=== PATIENT | female | born 1940 | race Caucasian/White ===

== ENCOUNTER → 2016-08-20 | Outpatient (CLI) | payer MEDICARE ==
[2016-08-20 10:53] LABS: ALT 28 U/L (9-52); AST 19 U/L (14-36); Alkaline Phosphatase 99 U/L (38-126); Anion Gap 11 mmol/L; Blood Urea Nitrogen 18 mg/dL (7-17); Calcium 9.8 mg/dL (8.4-10.2); Carbon Dioxide 28 mmol/L (22-30); Chloride 101 mmol/L (98-107); Cholesterol 220 mg/dL (<200); Glucose 161 mg/dL (74-99); HDL Cholesterol 49 mg/dL (40-60); Non-African American GFR(MDRD) >60 (>60 ml/min/1.73 sqM); Potassium 4.3 mmol/L (3.5-5.1); Sodium 140 mmol/L (137-145); Total Bilirubin 0.5 mg/dL (0.2-1.3); Total Protein 7.9 g/dL (6.3-8.2); Triglycerides 135 mg/dL (<150)
== END | disposition home or self-care (01) ==
LOC: LABWHC1 09:54
PROVIDERS: ATTEND Internal Medicine Endocrinology, Diabetes & Metabolism
DX: E11.65 Type 2 diabetes mellitus with hyperglycemia (principal)
CPT/HCPCS: 36415; 80053; 80061; 82043

== ENCOUNTER → 2017-01-02 | Outpatient (CLI) | payer MEDICARE ==
--- NOTE | 2017-01-03 13:42 | MM ---
Reason for exam: screening (asymptomatic). Last mammogram was performed 1 year and 1 month ago. History: Patient is postmenopausal and has history of other cancer at age 71. Cyst aspiration of the left breast. 2 benign excisional biopsies of the left breast. Benign excisional biopsy of the right breast. Took estrogen for 5 years beginning at age 45. Physical Findings: A clinical breast exam by your physician is recommended on an annual basis and results should be correlated with mammographic findings. MG 3D Screening Mammo W/Cad Bilateral CC and MLO view(s) were taken. Prior study comparison: December 12, 2015, bilateral MG 3d screening mammo w/cad. December 07, 2014, bilateral MG screening mammo w CAD. The breast tissue is heterogeneously dense. This may lower the sensitivity of mammography. No significant changes when compared with prior studies. ASSESSMENT: Negative, BI-RAD 1 RECOMMENDATION: Routine screening mammogram of both breasts in 1 year.
== END | disposition home or self-care (01) ==
LOC: RADMAMWWP 08:23
PROVIDERS: ATTEND Internal Medicine
DX: Z12.31 Encounter for screening mammogram for malignant neoplasm of breast (principal)
CPT/HCPCS: 77063; G0202

== ENCOUNTER → 2017-01-17 | Outpatient (CLI) | payer MEDICARE ==
[2017-01-17 10:00] LABS: Cholesterol 141 mg/dL (<200); HDL Cholesterol 52 mg/dL (40-60)
== END | disposition home or self-care (01) ==
LOC: LABWHC1 09:04
PROVIDERS: ATTEND Internal Medicine Endocrinology, Diabetes & Metabolism
DX: E11.65 Type 2 diabetes mellitus with hyperglycemia (principal)
CPT/HCPCS: 36415; 80061

== ENCOUNTER → 2017-04-29 | Outpatient (CLI) | payer MEDICARE ==
[2017-04-29 12:41] LABS: ALT 26 U/L (9-52); AST 19 U/L (14-36); Albumin 3.9 g/dL (3.5-5.0); Alkaline Phosphatase 85 U/L (38-126); Anion Gap 10 mmol/L; Blood Urea Nitrogen 22 mg/dL (7-17); Calcium 9.9 mg/dL (8.4-10.2); Carbon Dioxide 30 mmol/L (22-30); Chloride 102 mmol/L (98-107); Glucose 136 mg/dL (74-99); Potassium 4.6 mmol/L (3.5-5.1); Sodium 142 mmol/L (137-145); Total Bilirubin 0.3 mg/dL (0.2-1.3)
[2017-04-29 16:10] LABS: Hemoglobin A1C 8.5 % (4.0-6.0)
== END | disposition home or self-care (01) ==
LOC: LABWHC1 11:12
PROVIDERS: ATTEND Internal Medicine Endocrinology, Diabetes & Metabolism
DX: E11.65 Type 2 diabetes mellitus with hyperglycemia (principal)
CPT/HCPCS: 36415; 80053; 82043; 82570; 83036

== ENCOUNTER → 2017-10-02 | Outpatient (CLI) | payer MEDICARE | END | disposition home or self-care (01) | LOC: LABPAT 14:15 | PROVIDERS: ATTEND Orthopaedic Surgery | DX: Z01.812 Encounter for preprocedural laboratory examination (principal) | CPT/HCPCS: 87070 ==

== ENCOUNTER → 2017-10-02 | Outpatient (CLI) | payer MEDICARE ==
[2017-10-02 21:48] LABS: Hemoglobin A1C 8.1 % (4.0-6.0)
== END | disposition home or self-care (01) ==
LOC: LABWHC1 14:12
PROVIDERS: ATTEND Internal Medicine Endocrinology, Diabetes & Metabolism
DX: E11.65 Type 2 diabetes mellitus with hyperglycemia (principal)
CPT/HCPCS: 36415; 83036

== ENCOUNTER → 2017-10-03 | Outpatient (CLI) | payer MEDICARE ==
[2017-10-03 08:04] LABS: Basophils % (A) 0 %; Eosinophils # (A) 0.2 k/uL (0-0.7); Eosinophils % (A) 2 %; HCT 36.2 % (34.0-46.0); Lymphocytes # (A) 2.1 k/uL (1.0-4.8); Lymphocytes % (A) 24 %; MCH 30.8 pg (25.0-35.0); MCV 93.4 fL (80.0-100.0); Mean Platelet Volume 7.1; Monocytes # (A) 0.6 k/uL (0-1.0); Monocytes % (A) 7 %; Neutrophils # (A) 5.8 k/uL (1.3-7.7); Neutrophils % (A) 65 %; Platelet Count 422 k/uL (150-450); RBC 3.88 m/uL (3.80-5.40); WBC 8.8 k/uL (3.8-10.6)
[2017-10-03 08:38] LABS: ALT 28 U/L (9-52); AST 20 U/L (14-36); Alkaline Phosphatase 76 U/L (38-126); Anion Gap 11 mmol/L; Blood Urea Nitrogen 20 mg/dL (7-17); Carbon Dioxide 29 mmol/L (22-30); Chloride 100 mmol/L (98-107); Cholesterol 135 mg/dL (<200); Glucose 159 mg/dL (74-99); HDL Cholesterol 48 mg/dL (40-60); LDL Cholesterol,Calculated 64 mg/dL (0-99); Potassium 4.2 mmol/L (3.5-5.1); Sodium 140 mmol/L (137-145); Total Bilirubin 0.3 mg/dL (0.2-1.3); Total Protein 6.9 g/dL (6.3-8.2); Triglycerides 116 mg/dL (<150)
[2017-10-03 08:40] LABS: Appearance,Urine Clear (Clear); Bilirubin,Urine Negative (Negative); Blood,Urine Negative (Negative); Color,Urine Yellow; Glucose,Urine (UA) Negative (Negative); Hyaline Casts,Urine 1 /lpf (0-2); Ketones,Urine Negative (Negative); Leukocyte Esterase,Urine Trace (Negative); Mucus,Urine Rare /hpf; Nitrite,Urine Negative (Negative); Protein,Urine Negative (Negative); RBC,Urine <1 /hpf (0-5); Specific Gravity,Urine 1.018 (1.001-1.035); Squamous Epithelial Cell,Urine <1 /hpf (0-4); Urobilinogen,Urine <2.0 mg/dL (<2.0); WBC,Urine 2 /hpf (0-5)
== END | disposition home or self-care (01) ==
LOC: LABWHC1 07:12
PROVIDERS: ATTEND Internal Medicine
DX: E78.5 Hyperlipidemia, unspecified (principal); I10 Essential (primary) hypertension
CPT/HCPCS: 36415; 80053; 80061; 81001; 84439; 84443; 85025

== ENCOUNTER → 2017-12-04 | Outpatient (CLI) | payer MEDICARE ==
[2017-12-04 11:16] LABS: ALT 25 U/L (9-52); AST 19 U/L (14-36); Albumin 3.9 g/dL (3.5-5.0); Alkaline Phosphatase 78 U/L (38-126); Anion Gap 7 mmol/L; Blood Urea Nitrogen 16 mg/dL (7-17); Calcium 9.7 mg/dL (8.4-10.2); Carbon Dioxide 31 mmol/L (22-30); Chloride 103 mmol/L (98-107); Cholesterol 131 mg/dL (<200); Glucose 151 mg/dL (74-99); HDL Cholesterol 45 mg/dL (40-60); LDL Cholesterol,Calculated 58 mg/dL (0-99); Potassium 4.3 mmol/L (3.5-5.1); Sodium 141 mmol/L (137-145); Total Bilirubin 0.4 mg/dL (0.2-1.3); Total Protein 7.1 g/dL (6.3-8.2); Triglycerides 140 mg/dL (<150)
[2017-12-04 18:21] LABS: Hemoglobin A1C 7.6 % (4.0-6.0)
== END | disposition home or self-care (01) ==
LOC: LABWHC1 09:44
PROVIDERS: ATTEND Internal Medicine Endocrinology, Diabetes & Metabolism
DX: E11.65 Type 2 diabetes mellitus with hyperglycemia (principal)
CPT/HCPCS: 36415; 80053; 80061; 82043; 82570; 83036

== ENCOUNTER → 2017-12-25 | Outpatient (CLI) | payer MEDICARE ==
[2017-12-25 12:02] LABS: Basophils % (A) 1 %; Eosinophils # (A) 0.1 k/uL (0-0.7); Eosinophils % (A) 2 %; HCT 36.1 % (34.0-46.0); HGB 11.4 gm/dL (11.4-16.0); Lymphocytes % (A) 27 %; MCHC 31.4 g/dL (31.0-37.0); MCV 95.5 fL (80.0-100.0); Mean Platelet Volume 6.8; Monocytes # (A) 0.5 k/uL (0-1.0); Monocytes % (A) 6 %; Neutrophils # (A) 4.9 k/uL (1.3-7.7); Neutrophils % (A) 64 %; Platelet Count 445 k/uL (150-450); RBC 3.78 m/uL (3.80-5.40); RDW 13.2 % (11.5-15.5); WBC 7.7 k/uL (3.8-10.6)
== END | disposition home or self-care (01) ==
LOC: LABPAT 11:35
PROVIDERS: ATTEND Orthopaedic Surgery
DX: Z01.812 Encounter for preprocedural laboratory examination (principal); M17.11 Unilateral primary osteoarthritis, right knee
CPT/HCPCS: 85025; 85610; 85730

== ENCOUNTER 2017-12-31 08:36 | Inpatient (IN) | payer MEDICARE ==
[2017-12-25 08:18] VITALS: BMI 35.9
--- NOTE | 2017-12-30 17:21 | HP ---
HISTORY AND PHYSICAL CHIEF COMPLAINT: Right knee pain. HISTORY OF PRESENT ILLNESS: The patient is a 77-year-old retired female who presents with progressive right knee pain secondary to osteoarthrosis despite conservative measures. She notes pain limits her normal function and activities. PAST MEDICAL HISTORY: Significant for type 2 diabetes, coronary artery disease status post bypass grafting, hypertension, and hyperlipidemia. PAST SURGICAL HISTORY: Significant for coronary artery bypass grafting in addition to previous left total knee arthroplasty. She does have a history of a previous DVT. CURRENT MEDICATIONS: Aspirin, insulin, losartan, hydrochlorothiazide, metoprolol, simvastatin. ALLERGIES: She denies drug allergies. FAMILY HISTORY: Noncontributory. SOCIAL HISTORY: Significant for previous tobacco use. REVIEW OF SYSTEMS: Sixteen point review of systems otherwise reviewed and is noncontributory. PHYSICAL EXAMINATION: On examination, the patient is a well-developed, well-nourished female of endomorphic habitus. HEENT exam is nonfocal. NECK: Supple. She has painless passive motion of the right hip. Straight leg raise is negative. Active motion right knee -10 to 110 degrees of flexion. She is tender about the medial joint line. She has genu varum alignment. She has a mild effusion. Her distal neurovascular appears intact in the right lower extremity. Previous weightbearing notch, lateral and Merchant views of the right knee obtained in the office show severe medial compartment osteoarthrosis. IMPRESSION: 1. Right knee severe medial compartment osteoarthrosis. 2. History of heart disease, status post bypass grafting. 3. [id number]-wdwlhulmb diabetes. RECOMMENDATIONS: I talked to the patient at length regarding her condition and treatment options. At this point, she remains quite symptomatic despite extensive conservative measures. After thorough discussion of her options, she opts to proceed with surgery. We will plan to proceed with right total knee arthroplasty. We will institute DVT prophylaxis postoperatively. The patient underwent preoperative cardiac evaluation by Dr. Falcon. MMJESSE / MARINN: [id number] /
[~2017-12-31 08:36] MED LIST: ACETAMINOPHEN TAB 500 MG TAB PO ONE; MELOXICAM 7.5 MG TAB PO ONE; TRANEXAMIC ACID 1,000 MG in SODIUM CHLORIDE 0.9% 50 ML IVPB ONE; VANCOMYCIN 1,250 MG in SODIUM CHLORIDE 0.9% 250 ML IVPB ONE
[2017-12-31 09:46] LABS: Glucose,Whole Blood 149 mg/dL (75-99)
[2017-12-31] MEDS ORDERED: ONDANSETRON 4 MG/2 ML VIAL IVP ONE (09:54)
[2017-12-31] MEDS ORDERED: DEXAMETHASONE SOD PHOSPHATE 10 MG/ML 1 ML VIAL IV ONE (09:54)
[2017-12-31] MEDS ORDERED: LIDOCAINE 1% 20 ML VIAL (10MG/ML) FOR IV START INTRADERMA ONE (09:54)
[2017-12-31] MEDS ORDERED: LACTATED RINGERS 1,000 ML IV ONE ×2 (09:54→14:03)
[2017-12-31] MEDS ORDERED: MIDAZOLAM 2 MG/2 ML VIAL ONE ×2 (10:26→12:21)
[2017-12-31] MEDS ORDERED: ROPIVACAINE 246.25 MG, EPINEPHrine 0.5 MG, KETOROLAC 30 MG, cloNIDine HCL/PF 80 MCG, WA... MISCELLANE ONE ×5 (11:48)
[2017-12-31] MEDS ORDERED: ROPIVACAINE 1,100 MG, SODIUM CHLORIDE 0.9% 330 ML MISCELLANE PRN ×2 (12:02)
--- NOTE | 2017-12-31 12:04 | P.ONQ ---
Anesthesiology Proc Note - PNB - Peripheral Nerve Block Performed Right Adductor Canal Infusion Time Out Performed: Yes Procedure Start Time: 11:30 Procedure Stop Time: :40 Indication: Acute Post-Operative Pain, Requested by physician Sedation Type: Sedate with meaningful contact maintained Preparation: Sterile Dressing Position: Supine Catheter: Indwelling Needle Types: On-Q Needle Size: 100mm (4") Needle Gauge: 21 Technique: Ultrasound Injectate: 0.5% Ropivacaine (see comment for volume) Blood Aspirated: No Pain Paresthesia on Injection Noted: No Resistance on Injection: Normal Events: Uneventful and Well Tolerated
[2017-12-31] MEDS ORDERED: SODIUM CHLORIDE 0.9% 100 ML BAG ONE (12:21)
[2017-12-31] MEDS ORDERED: diphenhydrAMINE 50 MG/ML 1 ML VIAL ONE (12:21)
[2017-12-31] MEDS ORDERED: fentaNYL (PF) 50 MCG/ML 2 ML AMP ONE (12:21)
[2017-12-31] MEDS ORDERED: TRANEXAMIC ACID 1,000 MG/10 ML VIAL ONE (12:21)
[2017-12-31] MEDS ORDERED: ceFAZolin 3,000 MG in SODIUM CHLORIDE 0.9% IRRIGATIO 3,000 ML IRRIGATION ONE (12:27)
[2017-12-31] MEDS ORDERED: MAGNESIUM HYDROXIDE 2,400 MG/10 ML CUP PO PRN (14:03)
[2017-12-31] MEDS ORDERED: ONDANSETRON 4 MG/2 ML VIAL IVP PRN (14:03)
[2017-12-31] MEDS ORDERED: HYDROmorphone 1 MG/ML 1 ML SYRINGE IVP PRN (14:03)
[2017-12-31] MEDS ORDERED: NALOXONE 0.4 MG/ML 1 ML VIAL IV PRN (14:03)
[2017-12-31] MEDS ORDERED: traMADol 50 MG TAB PO PRN (14:03)
[2017-12-31] MEDS ORDERED: HYDROcodone/APAP 5-325MG 1 EACH TAB PO PRN (14:03)
--- NOTE | 2017-12-31 14:31 | P.OP ---
Date of Procedure: 12/31/17 Preoperative Diagnosis: Right knee severe tricompartmental osteoarthrosis Postoperative Diagnosis: Same Procedure(s) Performed: Right total knee arthroplastycementedcruciate substituting Implants: Depuy Attune size 5 narrow cemented femoral component, size 4 cemented tibial component, 10 mm articular surface, 29 mm cemented patellar component. This is a posterior stabilized implant. Anesthesia: regional, local, spinal Surgeon: Bryant Bone Superintendent Plant Protection #1: Karthik Cheng Estimated Blood Loss (ml): 50 Pathology: other (Bone fragments) Condition: stable Disposition: PACU Indications for Procedure: The patient is a 77-year-old female who presents with progressive right knee pain secondary osteoarthrosis despite conservative measures. A discussion of the risks and benefits of operative intervention versus continued conservative measures was made with the patient. She opted to proceed with surgery. Operative risks to include infection, neurovascular injury, development of blood clots, possible component loosening, possible component failure and need for subsequent procedures was discussed. Informed consent was obtained. Operative Findings: As below Description of Procedure: The patient was brought to the operating room, and after induction of spinal anesthesia the right lower extremity was prepped and draped in normal fashion. The tourniquet was inflated to 270 mmHg. A longitudinal incision extending 3 finger breaths above the superior pole of patella extending to the medial aspect of the tibial tubercle was then made. The skin and subcutaneous tissues were divided sharply. Electrocautery was used for hemostasis. A medial parapatellar arthrotomy is performed. The medial soft tissues to include the superficial and deep portions of the medial collateral ligament and medial hamstring tendons were elevated subperiosteally as well as the posterior medial capsule. The proximal medial tibia osteophytes were carefully removed with a curved osteotome. The patella was everted. A portion of the retropatellar fat pad was excised sharply. A starting hole was made in the distal femur 1 cm anterior to the posterior cruciate ligament origin. An intramedullary femoral guide was gently inserted planning on 5 valgus distal cut with 9 mm distal resection. The cutting block was pinned in place. The distal cut was then made. The posterior referencing sizing guide was utilized. I felt size 5 was most appropriate. 3 of external rotation was built into the system and verified off the trans-epicondylar axis and the posterior condyles. The cutting block was pinned in place. The anterior, posterior, and chamfer cuts were made. The bone fragments were then removed. The appropriate cutting guide was utilized for the intercondylar cut. A reciprocating saw was used to make this. The bone was removed in one fragment. The trial size 5 femoral component was placed and was fully seated. There was good anterior to posterior and medial to lateral fit. The distal peg holes were then drilled. The trial component was then removed. Attention was then paid towards preparing the proximal tibia. An extra measure the tibial guide was utilized in line with the tibial shaft and second metatarsal distally. A 0 posterior slope cutting block was utilized. I planned on 2 mm resection from the medial compartment. The cutting block was pinned in place. The proximal tibial cut was then made. The bone was removed in one fragment. The tibia sized most appropriate size 4. The remnants of the medial and lateral menisci were excised the capsule junction with electrocautery. The trial tibial and femoral components were placed along with a 10 mm articular surface and I felt I had tightness in flexion and extension therefore an additional 2 mm approximately tibia was removed utilizing the cutting block. The trial components again were placed. Is able to obtain full flexion and extension with good stability with varus and valgus stress. After several flexion and extension cycles, the tibial rotation was marked with electrocautery in line with the medial one third of the tibial tubercle. Attention was then paid towards repairing the patella. A patella reamer was utilized down to 14 mm of bone stock. A good flush cut was made. The patella sized most appropriately 29 mm per the peg holes were drilled. The trial components placed. The knee was taken through a range of motion. I had good patellofemoral tracking with no hands technique. The trial components were then removed. The tibia was prepared in the appropriate rotation with appropriate drill and keel punch. The posterior osteophytes off the distal femur were carefully removed with a curved osteotome. The flexion and extension gaps were checked and felt to be symmetric. Pulsatile lavage was utilized. The bony surfaces were dried. Posterior soft tissues were injected with ropivacaine. The tibial component was then cemented in place and was fully seated. Excess cement was removed. The femoral component was cemented in placed and was fully seated. Excess cement was removed. The trial 10 mm articular surface was placed and the knee was put in full extension. The patella component was cemented in place. After the cement had sufficiently hardened, the knee was again taken through a range of motion. Again I was able to obtain full flexion and extension with good stability with varus and valgus stress. The trial articular surface was removed and the final one inserted. This was fully seated. Care taken to avoid any soft tissue interposition. Pulsatile lavage was again utilized. The medial parapatellar arthrotomy was closed with #2 Ethibond suture. The tourniquet was deflated with approximate 70 minutes total tourniquet time. Final hemostasis was obtained with electrocautery. The second is of IV TXA was given. The subcutaneous tissues reapproximated interrupted 2-0 Vicryl sutures. The skin was reapproximated with 3-0 subcuticular strata fix suture. Skin tape and adhesive was applied. A sterile dressing was applied. The patient was then awoken from sedation and transferred to recovery room in good condition. Blood loss was estimated at 50 mL. No complications were incurred. Sponge and needle counts were correct at the end of the case.
--- NOTE | 2017-12-31 14:48 | XR ---
EXAMINATION TYPE: XR knee limited RT DATE OF EXAM: 12/31/2017 COMPARISON: NONE TECHNIQUE: Two views submitted HISTORY: Post op FINDINGS: There is a prosthetic knee in near anatomic alignment. There is soft tissue edema and emphysema. Bergeron rgical drain and clips noted. IMPRESSION: 1. Postoperative change. Appears in near-anatomic alignment
[2017-12-31 17:22] LABS: Glucose,Whole Blood 324 mg/dL (75-99)
[2017-12-31] MEDS: metFORMIN 500 MG TAB PO SCH (17:54)
[2017-12-31] MEDS: METOPROLOL TARTRATE 25 MG TAB PO SCH (20:33)
[2017-12-31] MEDS: ATORVASTATIN 20 MG TAB PO SCH (20:33)
[2017-12-31] MEDS: SENNOSIDES-DOCUSATE SODIUM 1 EACH TAB PO SCH (20:34)
[2017-12-31 20:59] LABS: Glucose,Whole Blood 339 mg/dL (75-99)
[2017-12-31] MEDS: INSULIN ASPART 100 UNIT/ML 1 ML 10 ML VIAL SQ SCH (22:00)
[2017-12-31] MEDS: INSULIN DETEMIR 100 UNIT/ML 10 ML VIAL SQ SCH (22:01)
[2018-01-01 07:10] LABS: Glucose,Whole Blood 171 mg/dL (75-99)
[2018-01-01] MEDS ORDERED: INSULIN ASPART 100 UNIT/ML 1 ML 10 ML VIAL SQ SCH (07:30)
[2018-01-01 07:51] LABS: Basophils % (A) 0 %; Eosinophils % (A) 0 %; HCT 32.1 % (34.0-46.0); HGB 10.1 gm/dL (11.4-16.0); Lymphocytes # (A) 1.7 k/uL (1.0-4.8); Lymphocytes % (A) 13 %; MCH 30.2 pg (25.0-35.0); MCHC 31.6 g/dL (31.0-37.0); MCV 95.6 fL (80.0-100.0); Mean Platelet Volume 7.6; Monocytes # (A) 0.8 k/uL (0-1.0); Monocytes % (A) 7 %; Neutrophils # (A) 10.2 k/uL (1.3-7.7); Neutrophils % (A) 80 %; Platelet Count 428 k/uL (150-450); RBC 3.36 m/uL (3.80-5.40); WBC 12.8 k/uL (3.8-10.6)
[2018-01-01] MEDS: metFORMIN 500 MG TAB PO SCH ×2 (08:12→18:20)
[2018-01-01] MEDS: INSULIN ASPART 100 UNIT/ML 1 ML 10 ML VIAL SQ SCH ×4 (08:12→21:17)
[2018-01-01] MEDS: LOSARTAN-HCTZ 50-12.5 MG 1 EACH TAB PO SCH (08:38)
[2018-01-01] MEDS: RIVAROXABAN 10 MG TAB PO SCH (08:38)
[2018-01-01] MEDS: METOPROLOL TARTRATE 50 MG TAB PO SCH (08:39)
[2018-01-01] MEDS: amLODIPine 2.5 MG TAB PO SCH (08:39)
[2018-01-01] MEDS: HYDROcodone/APAP 7.5-325MG 1 EACH TAB PO PRN (09:55)
--- NOTE | 2018-01-01 10:49 | P.PN ---
Progress Note - Text 01/01 710am 77-year-old female status post total knee replacement by Dr. Bone. Patient has a VAS of 4 the solution running at 8 mL an hour. I increase the rate to 10 mL an hour nurse informed
--- NOTE | 2018-01-01 11:17 | P.PN ---
Subjective Progress Note Date: 01/01/18 Principal diagnosis: Status post right total knee arthroplasty Patient seen today resting in her hospital bed, she is utilizing CPM. She is examined today with therapy. She states she'll nausea when ambulating. She denies any chest pain or shortness of breath. Objective - Vital Signs Vital signs: Vital Signs Temp 97.5 F L 01/01/18 07:00 Pulse 62 01/01/18 07:00 Resp 16 01/01/18 07:00 BP 146/72 01/01/18 07:00 Pulse Ox 96 01/01/18 07:00 Intake & Output 12/31/17 01/01/18 01/01/18 18:59 06:59 18:59 Intake Total 1701 540 Output Total 825 620 200 Balance 876 -620 340 Weight 86.183 kg Intake: IV 1701 Oral 540 Output: Drainage 170 Right Knee 170 Urine 775 450 200 Estimated Blood Loss 50 Other: Voiding Method Indwelling Catheter Indwelling Catheter - Exam Right lower extremity: Incision is clean, dry, and intact. The prineo tape is in good condition. There is minimal soft tissue swelling and ecchymosis surrounding the medial and lateral aspects of the incision. Calf is soft, no tenderness with palpation. Plantar flexion, dorsiflexion, EHL, FHL are intact. Sensory exam to light touch throughout the extremity is intact, dorsal pedis pulses 2+. - Labs CBC & Chem 7: 01/01/18 06:41 Labs: Abnormal Lab Results - Last 24 Hours (Table) 12/31/17 12/31/17 01/01/18 Range/Units 17:18 20:57 06:41 WBC 12.8 H (3.8-10.6) k/uL RBC 3.36 L (3.80-5.40) m/uL Hgb 10.1 L (11.4-16.0) gm/dL Hct 32.1 L (34.0-46.0) % Neutrophils # 10.2 H (1.3-7.7) k/uL POC Glucose (mg/dL) 324 H 339 H (75-99) mg/dL 01/01/18 Range/Units 07:08 WBC (3.8-10.6) k/uL RBC (3.80-5.40) m/uL Hgb (11.4-16.0) gm/dL Hct (34.0-46.0) % Neutrophils # (1.3-7.7) k/uL POC Glucose (mg/dL) 171 H (75-99) mg/dL Assessment and Plan Plan: Assessment: Postoperative day 1 status post right total knee arthroplasty Plan: Pain control, continue current medication GI and DVT prophylaxis, continue current medication Encourage incentive spirometer Daily dressing changes/ice and elevate Continue working with physical therapy and use of CPM Medical recommendations Discharge planning: Patient will likely be discharged to rehab in 2 days Time with Patient: Less than 30
[2018-01-01 11:57] LABS: Glucose,Whole Blood 181 mg/dL (75-99)
--- NOTE | 2018-01-01 15:42 | P.CNPUL ---
History of Present Illness Consult date: 01/01/18 Requesting physician: Bryant Bone Reason for consult: other Chief complaint: Right total knee arthroplasty for severe tricompartmental osteoarthrosis History of present illness: This is 77-year-old white female patient of Dr. Gama, underwent elective right total knee arthroplasty on 12/31/2014 for a diagnosis of right knee severe tricompartmental osteoarthrosis. Patient has been having progressive right knee pain despite conservative measures, and eventually she opted for surgical option. Past medical history significant for type 2 diabetes, coronary artery disease status post bypass grafting, hypertension, and hyperlipidemia. She did have a history of previous DVT, and previous left total knee arthroplasty. Patient is a nonsmoker, and is no chronic lung disease. We are seeing the patient in the postoperative period on the surgical floor for medical management. He can alert, denies any acute distress, no shortness of breath, no chest pain, room air pulse ox is 95%, she is afebrile. Lungs are clear, right knee incision is covered with surgical dressing, there is moderate degree of postoperative swelling, distal pulses are intact. No calf tenderness. Today's blood work was reviewed, WBC is 12.8, hemoglobin is 10.1. Pain is reasonably controlled, and she is on an epidural and 8 ML per hour. Review of Systems All systems: negative Constitutional: Denies chills, Denies fever Eyes: denies blurred vision, denies pain Ears, nose, mouth and throat: Denies headache, Denies sore throat Cardiovascular: Denies chest pain, Denies shortness of breath Respiratory: Denies cough Gastrointestinal: Denies abdominal pain, Denies diarrhea, Denies nausea, Denies vomiting Genitourinary: Denies dysuria, Denies hematuria Musculoskeletal: Reports as per HPI, Reports limitation of motion, Denies myalgias Musculoskeletal: right: knee swelling Integumentary: Denies pruritus, Denies rash Neurological: Denies numbness, Denies weakness Psychiatric: Denies anxiety, Denies depression Endocrine: Denies fatigue, Denies weight change Past Medical History Past Medical History: Coronary Artery Disease (CAD), Cancer, Diabetes Mellitus, Deep Vein Thrombosis (DVT), Hyperlipidemia, Hypertension, Osteoarthritis (OA) Additional Past Medical History / Comment(s): dvt in leg years ago, past hx skin cancer History of Any Multi-Drug Resistant Organisms: None Reported Date of last positivie culture/infection: . MDRO Source:: . Past Surgical History: Appendectomy, Breast Surgery, Coronary Bypass/CABG, Heart Catheterization, Hysterectomy, Joint Replacement Additional Past Surgical History / Comment(s): triple bypass 2008, left knee replaced, breast biopsies x3, cataracts removed Past Anesthesia/Blood Transfusion Reactions: No Reported Reaction Additional Past Anesthesia/Blood Transfusion Reaction / Comment(s): claustrophobia Past Psychological History: No Psychological Hx Reported Smoking Status: Former smoker Past Alcohol Use History: None Reported Additional Past Alcohol Use History / Comment(s): smoked couple years 1 cig/d quit 50 years ago Past Drug Use History: None Reported - Past Family History Mother Family Medical History: No Reported History Medications and Allergies Home Medications Medication Instructions Recorded Confirmed Type Aspirin 243 mg PO HS 08/20/13 12/31/17 History Insulin Glargine,Hum.rec.anlog 24 units SQ HS 08/20/13 12/31/17 History [Lantus Solostar] Metoprolol Tartrate 50 mg PO QA 08/20/13 12/31/17 History Simvastatin [Zocor] 40 mg PO HS 08/03/15 12/31/17 History amLODIPine BESYLATE [Norvasc] 2.5 mg PO DAILY 08/03/15 12/31/17 History Losartan/Hydrochlorothiazide 1 tab PO DAILY 10/01/17 12/31/17 History [Hyzaar 100-25 Tablet] Metoprolol Tartrate [Lopressor] 75 mg PO HS 10/01/17 12/31/17 History metFORMIN HCL [Glucophage] 500 mg PO QID 10/01/17 12/31/17 History Allergies Allergy/AdvReac Type Severity Reaction Status Date / Time No Known Allergies Allergy Verified 12/31/17 16:39 Physical Exam Vitals: Vital Signs Temp Pulse Resp BP Pulse Ox 01/01/18 15:00 97.9 F 60 16 122/69 95 01/01/18 07:00 97.5 F L 62 16 146/72 96 01/01/18 01:34 97.5 F L 54 L 15 123/71 96 12/31/17 20:25 98.4 F 73 12 137/71 92 L 12/31/17 17:32 49 L 108/72 12/31/17 17:21 61 137/69 12/31/17 17:00 68 147/62 12/31/17 16:45 68 137/94 12/31/17 16:30 61 145/64 12/31/17 16:15 68 137/62 12/31/17 16:00 97.9 F 12 145/72 92 L 12/31/17 15:31 60 16 138/64 99 Intake and Output 01/01/18 01/01/18 01/01/18 06:59 14:59 22:59 Intake Total 920 Output Total 620 200 Balance -620 720 Intake: Oral 920 Output: Drainage 170 Right Knee 170 Urine 450 200 Other: Voiding Method Indwelling Catheter Indwelling Catheter # Voids 1 GENERAL EXAM: Alert, very pleasant 77-year-old white female comfortable in no apparent distress. HEAD: Normocephalic/atraumatic. EYES: Normal reaction of pupils, equal size. Conjunctiva pink, sclera white. NOSE: Clear with pink turbinates. THROAT: No erythema or exudates. NECK: No masses, no JVD, no thyroid enlargement, no adenopathy. CHEST: No chest wall deformity. Symmetrical expansion. LUNGS: Equal air entry with no crackles, wheeze, rhonchi or dullness. CVS: Regular rate and rhythm, normal S1 and S2, no gallops, no murmurs, no rubs ABDOMEN: Soft, nontender. No hepatosplenomegaly, normal bowel sounds, no guarding or rigidity. EXTREMITIES: No clubbing, no cyanosis, 2+ pulses and upper and lower extremities. MUSCULOSKELETAL: Muscle strength and tone normal. Right knee incision is covered with surgical dressing, no shadowing, mild degree of swelling surrounding right knee, intact, no calf tenderness. SPINE: No scoliosis or deformity SKIN: No rashes CENTRAL NERVOUS SYSTEM: Alert and oriented -3. No focal deficits, tone is normal in all 4 extremities. PSYCHIATRIC: Alert and oriented -3. Appropriate affect. Intact judgment and insight. Results - Laboratory Findings CBC and BMP: 01/01/18 06:41 Abnormal lab findings: Abnormal Labs 12/31/17 12/31/17 12/31/17 09:40 17:18 20:57 WBC RBC Hgb Hct Neutrophils # POC Glucose (mg/dL) 149 H 324 H 339 H 01/01/18 01/01/18 01/01/18 06:41 07:08 11:55 WBC 12.8 H RBC 3.36 L Hgb 10.1 L Hct 32.1 L Neutrophils # 10.2 H POC Glucose (mg/dL) 171 H 181 H Assessment and Plan Plan: Assessment: #1. Severe right knee osteoarthrosis, status post right total knee arthroplasty , post op day 1 #2. History of artery artery disease status post bypass grafting #3. Diabetes mellitus #4. Previous history of DVT #5. Previous history of left total knee arthroplasty #6. Hypertension hyperlipidemia Plan: Continue encouraging incentive spirometry use, resumed home medications, pain control. GI and DVT prophylaxis, glucose monitoring. Patient had been started on Xarelto for anticoagulation. Doing well. We'll continue to follow I performed a history & physical examination of the patient and discussed their management with my nurse practitioner, Yelena Mcguire. I reviewed the nurse practitioner's note and agree with the documented findings and plan of care. Lung sounds are clear. The findings and the impression was discussed with the patient. I attest to the documentation by the nurse practitioner. Time with Patient: Greater than 30
[2018-01-01 17:22] LABS: Glucose,Whole Blood 202 mg/dL (75-99)
[2018-01-01 20:24] LABS: Glucose,Whole Blood 236 mg/dL (75-99)
[2018-01-01] MEDS: INSULIN DETEMIR 100 UNIT/ML 10 ML VIAL SQ SCH (21:17)
[2018-01-01] MEDS: METOPROLOL TARTRATE 25 MG TAB PO SCH (21:17)
[2018-01-01] MEDS: ATORVASTATIN 20 MG TAB PO SCH (21:17)
[2018-01-01] MEDS: SENNOSIDES-DOCUSATE SODIUM 1 EACH TAB PO SCH (21:17)
[2018-01-02] MEDS: HYDROcodone/APAP 7.5-325MG 1 EACH TAB PO PRN ×3 (03:33→23:55)
[2018-01-02 07:02] LABS: Glucose,Whole Blood 162 mg/dL (75-99)
--- NOTE | 2018-01-02 07:38 | P.PN ---
Progress Note - Text Progress Note Date: 01/02/18 Patient seen and examined today. Status post right total knee arthroplasty. Postoperative day #2. Abductor canal catheter day #3. Patient states that VAS is a 6 out of 10 in severity. Worse after ambulation. She denies any motor or sensory deficits. Patient will be discharged today.
[2018-01-02] MEDS: INSULIN ASPART 100 UNIT/ML 1 ML 10 ML VIAL SQ SCH ×4 (07:47→19:53)
[2018-01-02] MEDS: metFORMIN 500 MG TAB PO SCH ×2 (07:47→17:31)
[2018-01-02] MEDS: RIVAROXABAN 10 MG TAB PO SCH (08:55)
[2018-01-02] MEDS: METOPROLOL TARTRATE 50 MG TAB PO SCH (08:55)
[2018-01-02] MEDS: LOSARTAN-HCTZ 50-12.5 MG 1 EACH TAB PO SCH (08:55)
[2018-01-02] MEDS: amLODIPine 2.5 MG TAB PO SCH (08:55)
--- NOTE | 2018-01-02 09:29 | P.PN ---
Subjective Progress Note Date: 01/02/18 Principal diagnosis: Status post right total knee arthroplasty Patient seen today resting in her hospital bed. She denies any chest pain or shortness of breath. Objective - Vital Signs Vital signs: Vital Signs Temp 98.6 F 01/02/18 07:56 Pulse 70 01/02/18 07:56 Resp 16 01/02/18 07:56 BP 158/80 01/02/18 07:56 Pulse Ox 96 01/02/18 00:11 Intake & Output 01/01/18 01/02/18 01/02/18 18:59 06:59 18:59 Intake Total 1240 Output Total 200 Balance 1040 Intake: Oral 1240 Output: Urine 200 Other: Voiding Method Indwelling Catheter Toilet # Voids 1 1 - Exam Right lower extremity: Incision is clean, dry, and intact. The prineo tape is in good condition. There is minimal soft tissue swelling and ecchymosis surrounding the medial and lateral aspects of the incision. Calf is soft, no tenderness with palpation. Plantar flexion, dorsiflexion, EHL, FHL are intact. Sensory exam to light touch throughout the extremity is intact, dorsal pedis pulses 2+. - Labs CBC & Chem 7: 01/01/18 06:41 Labs: Abnormal Lab Results - Last 24 Hours (Table) 01/01/18 01/01/18 01/01/18 Range/Units 11:55 17:20 20:23 POC Glucose (mg/dL) 181 H 202 H 236 H (75-99) mg/dL 01/02/18 Range/Units 07:01 POC Glucose (mg/dL) 162 H (75-99) mg/dL Assessment and Plan Plan: Assessment: Postoperative day #2 status post right total knee arthroplasty Plan: Pain control, I did adjust oral medication GI and DVT prophylaxis, continue current medication Encourage incentive spirometer Daily dressing changes/ice and elevate Continue working with physical therapy and use of CPM Medical recommendations Discharge planning: Plan for discharge tomorrow to rehab Time with Patient: Less than 30
[2018-01-02 11:59] LABS: Glucose,Whole Blood 209 mg/dL (75-99)
[2018-01-02] MEDS: HYDROmorphone 1 MG/ML 1 ML SYRINGE IVP PRN ×2 (12:22→17:06)
--- NOTE | 2018-01-02 12:35 | P.PN ---
Subjective Progress Note Date: 01/02/18 Principal diagnosis: Severe right knee osteoarthrosis, status post right total knee arthroplasty, postop day 2 This is 77-year-old white female patient of Dr. Gama, underwent elective right total knee arthroplasty on 12/31/2014 for a diagnosis of right knee severe tricompartmental osteoarthrosis. Patient has been having progressive right knee pain despite conservative measures, and eventually she opted for surgical option. Past medical history significant for type 2 diabetes, coronary artery disease status post bypass grafting, hypertension, and hyperlipidemia. She did have a history of previous DVT, and previous left total knee arthroplasty. Patient is a nonsmoker, and is no chronic lung disease. We are seeing the patient in the postoperative period on the surgical floor for medical management. He can alert, denies any acute distress, no shortness of breath, no chest pain, room air pulse ox is 95%, she is afebrile. Lungs are clear, right knee incision is covered with surgical dressing, there is moderate degree of postoperative swelling, distal pulses are intact. No calf tenderness. Today's blood work was reviewed, WBC is 12.8, hemoglobin is 10.1. Pain is reasonably controlled, and she is on an epidural and 8 ML per hour. On 01/02/2018 patient seen again in follow-up on the surgical floor. Has been up ambulating, and patient has severe pain post-ambulation in the postsurgical right knee. Currently she is in bed, oral pain pill, and she is in severe distress from pain. She still has the abductor canal catheter, anesthesia is managing it. She has dilated IV for breakthrough pain, patient was encouraged to ask for her pain medications on the regular basis, without waiting for severe outbreak of pain after ambulation. From pulmonary standpoint she remains stable, complaints, patient is compliant with her incentive spirometry. Room air pulse ox is 96%, she is afebrile. Lung sounds are clear. Objective - Vital Signs Vital signs: Vital Signs Temp 98.6 F 01/02/18 07:56 Pulse 70 01/02/18 07:56 Resp 16 01/02/18 07:56 BP 158/80 01/02/18 07:56 Pulse Ox 96 01/02/18 00:11 Intake & Output 01/01/18 01/02/18 01/02/18 18:59 06:59 18:59 Intake Total 1240 222 Output Total 200 Balance 1040 222 Intake: Oral 1240 222 Output: Urine 200 Other: Voiding Method Indwelling Catheter Toilet # Voids 1 1 - Exam GENERAL EXAM: Alert, very pleasant 77-year-old white female comfortable in no apparent distress. HEAD: Normocephalic/atraumatic. EYES: Normal reaction of pupils, equal size. Conjunctiva pink, sclera white. NOSE: Clear with pink turbinates. THROAT: No erythema or exudates. NECK: No masses, no JVD, no thyroid enlargement, no adenopathy. CHEST: No chest wall deformity. Symmetrical expansion. LUNGS: Equal air entry with no crackles, wheeze, rhonchi or dullness. CVS: Regular rate and rhythm, normal S1 and S2, no gallops, no murmurs, no rubs ABDOMEN: Soft, nontender. No hepatosplenomegaly, normal bowel sounds, no guarding or rigidity. EXTREMITIES: No clubbing, no cyanosis, 2+ pulses and upper and lower extremities. MUSCULOSKELETAL: Muscle strength and tone normal. Right knee incision is covered with surgical dressing, no shadowing, mild degree of swelling surrounding right knee, intact, no calf tenderness. Patient has a abductor canal catheter inserted above the right knee SPINE: No scoliosis or deformity SKIN: No rashes CENTRAL NERVOUS SYSTEM: Alert and oriented -3. No focal deficits, tone is normal in all 4 extremities. PSYCHIATRIC: Alert and oriented -3. Appropriate affect. Intact judgment and insight. - Labs CBC & Chem 7: 01/01/18 06:41 Labs: Abnormal Lab Results - Last 24 Hours (Table) 01/01/18 01/01/18 01/02/18 Range/Units 17:20 20:23 07:01 POC Glucose (mg/dL) 202 H 236 H 162 H (75-99) mg/dL 01/02/18 Range/Units 11:57 POC Glucose (mg/dL) 209 H (75-99) mg/dL Assessment and Plan Plan: Assessment: #1. Severe right knee osteoarthrosis, status post right total knee arthroplasty , post op day 2 #2. History of artery artery disease status post bypass grafting #3. Diabetes mellitus #4. Previous history of DVT #5. Previous history of left total knee arthroplasty #6. Hypertension hyperlipidemia Plan: Maintain pain control, continue encouraging since spirometry. Remains stable, no acute events overnight. Her only issue is increased pain after ambulation, and patient was encouraged to stay on top of her pain medications. I performed a history & physical examination of the patient and discussed their management with my nurse practitioner, Yelena Mcguire. I reviewed the nurse practitioner's note and agree with the documented findings and plan of care. Lung sounds are clear. The findings and the impression was discussed with the patient. I attest to the documentation by the nurse practitioner. Time with Patient: Less than 30
[2018-01-02 17:18] LABS: Glucose,Whole Blood 244 mg/dL (75-99)
[2018-01-02 19:45] LABS: Glucose,Whole Blood 229 mg/dL (75-99)
[2018-01-02] MEDS: METOPROLOL TARTRATE 25 MG TAB PO SCH (19:52)
[2018-01-02] MEDS: SENNOSIDES-DOCUSATE SODIUM 1 EACH TAB PO SCH (19:52)
[2018-01-02] MEDS: ATORVASTATIN 20 MG TAB PO SCH (19:52)
[2018-01-02] MEDS: INSULIN DETEMIR 100 UNIT/ML 10 ML VIAL SQ SCH (20:53)
[2018-01-03] MEDS: HYDROcodone/APAP 7.5-325MG 1 EACH TAB PO PRN ×2 (05:53→13:48)
[2018-01-03 07:16] LABS: Glucose,Whole Blood 152 mg/dL (75-99)
[2018-01-03 07:45] LABS: Basophils % (A) 0 %; Eosinophils # (A) 0.1 k/uL (0-0.7); Eosinophils % (A) 1 %; HCT 32.1 % (34.0-46.0); HGB 10.2 gm/dL (11.4-16.0); Lymphocytes # (A) 2.9 k/uL (1.0-4.8); Lymphocytes % (A) 28 %; MCH 30.2 pg (25.0-35.0); MCHC 31.7 g/dL (31.0-37.0); MCV 95.3 fL (80.0-100.0); Mean Platelet Volume 7.7; Monocytes # (A) 0.8 k/uL (0-1.0); Monocytes % (A) 8 %; Neutrophils # (A) 6.5 k/uL (1.3-7.7); Neutrophils % (A) 62 %; Platelet Count 413 k/uL (150-450); RBC 3.37 m/uL (3.80-5.40); RDW 13.2 % (11.5-15.5); WBC 10.4 k/uL (3.8-10.6)
[2018-01-03 07:51] VITALS: BP 157/64; PULSE 63; RESP 20; TEMP 98.9
[2018-01-03] MEDS: metFORMIN 500 MG TAB PO SCH (08:05)
[2018-01-03] MEDS: INSULIN ASPART 100 UNIT/ML 1 ML 10 ML VIAL SQ SCH ×2 (08:05→12:51)
[2018-01-03] MEDS: RIVAROXABAN 10 MG TAB PO SCH (09:34)
[2018-01-03] MEDS: amLODIPine 2.5 MG TAB PO SCH (09:34)
[2018-01-03] MEDS: LOSARTAN-HCTZ 50-12.5 MG 1 EACH TAB PO SCH (09:34)
[2018-01-03] MEDS: METOPROLOL TARTRATE 50 MG TAB PO SCH (09:34)
--- NOTE | 2018-01-03 11:34 | P.PN ---
Subjective Progress Note Date: 01/03/18 Principal diagnosis: Status post right total knee arthroplasty Patient seen today resting in her hospital bed. She denies any chest pain or shortness of breath. Objective - Vital Signs Vital signs: Vital Signs Temp 98.9 F 01/03/18 07:50 Pulse 63 01/03/18 07:50 Resp 20 01/03/18 07:50 BP 157/64 01/03/18 07:50 Pulse Ox 93 L 01/03/18 00:32 Intake & Output 01/02/18 01/03/18 01/03/18 18:59 06:59 18:59 Intake Total 702 Balance 702 Intake: Oral 702 Other: Voiding Method Bedside Commode # Voids 2 1 - Exam Right lower extremity: Incision is clean, dry, and intact. The prineo tape is in good condition. There is minimal soft tissue swelling and ecchymosis surrounding the medial and lateral aspects of the incision. Calf is soft, no tenderness with palpation. Plantar flexion, dorsiflexion, EHL, FHL are intact. Sensory exam to light touch throughout the extremity is intact, dorsal pedis pulses 2+. - Labs CBC & Chem 7: 01/03/18 06:06 Labs: Abnormal Lab Results - Last 24 Hours (Table) 01/02/18 01/02/18 01/02/18 Range/Units 11:57 17:16 19:44 RBC (3.80-5.40) m/uL Hgb (11.4-16.0) gm/dL Hct (34.0-46.0) % POC Glucose (mg/dL) 209 H 244 H 229 H (75-99) mg/dL 01/03/18 01/03/18 Range/Units 06:06 07:07 RBC 3.37 L (3.80-5.40) m/uL Hgb 10.2 L (11.4-16.0) gm/dL Hct 32.1 L (34.0-46.0) % POC Glucose (mg/dL) 152 H (75-99) mg/dL Assessment and Plan Plan: Assessment: Postoperative day #3 status post right total knee arthroplasty Plan: Pain control, we'll discharge on oral medication GI and DVT prophylaxis, Xarelto 10 mg 10 days Encourage incentive spirometer Daily dressing changes/ice and elevate Continue working with physical therapy and use of CPM Medical recommendations Discharge planning: Plan for discharge to rehab today Time with Patient: Less than 30
--- NOTE | 2018-01-03 11:39 | P.DS ---
Providers Date of admission: 12/31/17 08:36 Expected date of discharge: 01/03/18 Attending physician: Bryant Bone Consults: 12/31/17 14:05 Consult Physician Routine Consulting Provider: Amado Gama Consult Reason/Comments: Medical Management Do you want consulting provider notified?: Yes Primary care physician: Amado Gama [facility] Course: Date of admission: 12/31/2017 Date of discharge: 01/03/2018 Admission diagnosis: Status post right total knee arthroplasty Discharge diagnosis: Same Attending physician: Dr. Brothers Surgical procedures: Right total knee arthroplasty Brief history: Patient is a 77-year-old female with a history of progressive primary right knee osteoarthritis. At this point patient has failed conservative treatment measures and has opted to proceed with a elective right total knee arthroplasty. Hospital course: Details of patient's surgery can be found in operative report. Patient tolerated the procedure well and was subsequently transported to orthopedic floor. Patient's orthopeidc and medical care was provided daily. Patient had daily laboratory tests performed for evaluation of overall blood counts. Patient had daily physical therapy to include strengthening range of motion as well as education with walker ambulation. Patient had daily CPM usage as part of their physical therapy program. Patient was treated with Xarelto for their postoperative DVT prophylaxis during their inpatient stay. Patient was noted to have a relatively uneventful postoperative course. Patient reported satisfactory pain control with oral pain medications by postoperative day 03. Patient showed satisfactory progress with physical therapy. Patient moved steadily through the program and had no difficulty meeting the goals by postoperative day 3. Given patient's otherwise satisfactory course and having met physical therapy goals, plan is to discharge patient rehab on postoperative day 3. Discharge condition/disposition: Patient will be discharged rehab in stable condition. Discharge medications: Instructions are given on resumption of patient's normal daily medications per primary care recommendation, in addition patient will be prescribed [place] 7.5 mg/325 mg, tramadol 50 mg, Xarelto 10 mg. Discharge instructions: 1. Wound care and infection precautions, keep incision dry and covered while showering, no lotions, creams, moisturizers. No soaking, tubs, pools, hottubs. Do not scrub over the incision. 2. Weight-bear as tolerated with walker / cane until follow-up. 3. Ice and elevate when necessary. Do not exceed 20 minutes per hour with ice pack. 4. Utilize compression sleeve until seen at first follow up appointment. 5. Visiting nursing care. 6. Home physical therapy including home CPM. 7. Pain meds and anticoagulants per prescription. 8. Pain medication has potential to cause constipation. Increase oral fluid and fiber intake. Contact primary care provider if you have not had a bowel movement within 48 hours after discharge 9. No anti-inflammatory medication until discussed at first post operative visit, this including Motrin, Aleve, Mobic, Diclofenac. 10. Follow up in office at 2 weeks postop with Fred Cheng PA-C 11. Follow up with your primary care doctor 7-10 days after discharge. 12. Contact [facility] with any questions, . Procedures: Right total knee arthroplasty Patient Condition at Discharge: Good Plan - Discharge Summary Discharge Rx Participant: No New Discharge Prescriptions: New HYDROcodone/APAP 7.5-325MG [[place] 7.5] 1 - 2 each PO Q6HR PRN #56 tab PRN Reason: Pain Rivaroxaban [Xarelto] 10 mg PO DAILY #12 tab traMADol HCl [Ultram] 50 mg PO Q6H PRN #28 tab PRN Reason: Pain No Action Metoprolol Tartrate 50 mg PO QAM Insulin Glargine,Hum.rec.anlog [Lantus Solostar] 24 units SQ HS Aspirin 243 mg PO HS amLODIPine BESYLATE [Norvasc] 2.5 mg PO DAILY Simvastatin [Zocor] 40 mg PO HS Metoprolol Tartrate [Lopressor] 75 mg PO HS Losartan/Hydrochlorothiazide [Hyzaar 100-25 Tablet] 1 tab PO DAILY metFORMIN HCL [Glucophage] 500 mg PO QID Discharge Medication List Aspirin 243 mg PO HS 08/20/13 [History] Insulin Glargine,Hum.rec.anlog [Lantus Solostar] 24 units SQ HS 08/20/13 [ History] Metoprolol Tartrate 50 mg PO QAM 08/20/13 [History] Simvastatin [Zocor] 40 mg PO HS 08/03/15 [History] amLODIPine BESYLATE [Norvasc] 2.5 mg PO DAILY 08/03/15 [History] Losartan/Hydrochlorothiazide [Hyzaar 100-25 Tablet] 1 tab PO DAILY 10/01/17 [ History] Metoprolol Tartrate [Lopressor] 75 mg PO HS 10/01/17 [History] metFORMIN HCL [Glucophage] 500 mg PO QID 10/01/17 [History] HYDROcodone/APAP 7.5-325MG [[place] 7.5] 1 - 2 each PO Q6HR PRN #56 tab 01/03/18 [ Rx] Rivaroxaban [Xarelto] 10 mg PO DAILY #12 tab 01/03/18 [Rx] traMADol HCl [Ultram] 50 mg PO Q6H PRN #28 tab 01/03/18 [Rx] Follow up Appointment(s)/Referral(s): Karthik Cheng, VIDYA [PHYSICIAN TREASURER] - 01/17/18 2:50 pm Activity/Diet/Wound Care/Special Instructions: Orthopedic Discharge Instructions: 1. Wound care and infection precautions, keep incision dry and covered while showering, no lotions, creams, moisturizers. No soaking, pools, hot tubs. Do not scrub over incision. 2. Weight-bear as tolerated with walker / cane until follow-up. 3. Ice and elevate when necessary. Do not exceed 20 minutes per hour with ice pack. 4. Utilize compression sleeve until seen at first follow up appointment. 5. Pain meds and anticoagulants per prescription. 6. Pain medication has potential to cause constipation. Increase oral fluid and fiber intake. Contact primary care provider if you have not had a bowel movement within 48 hours after discharge. 7. No anti-inflammatory medication until discussed at first post operative visit, this including Motrin, Aleve, Mobic, Diclofenac. 8. Follow up in office at 2 weeks postop with Fred Cheng PA-C 9. Follow up with your primary care doctor 7-10 days after discharge. 10. Contact [facility] with any questions, . Discharge Disposition: TRANSFER TO SNF/ECF
--- NOTE | 2018-01-03 12:31 | P.PN ---
Subjective Progress Note Date: 01/03/18 Principal diagnosis: Severe right knee osteoarthrosis, status post right total knee arthroplasty, postop day 2 This is 77-year-old white female patient of Dr. Gama, underwent elective right total knee arthroplasty on 12/31/2014 for a diagnosis of right knee severe tricompartmental osteoarthrosis. Patient has been having progressive right knee pain despite conservative measures, and eventually she opted for surgical option. Past medical history significant for type 2 diabetes, coronary artery disease status post bypass grafting, hypertension, and hyperlipidemia. She did have a history of previous DVT, and previous left total knee arthroplasty. Patient is a nonsmoker, and is no chronic lung disease. We are seeing the patient in the postoperative period on the surgical floor for medical management. He can alert, denies any acute distress, no shortness of breath, no chest pain, room air pulse ox is 95%, she is afebrile. Lungs are clear, right knee incision is covered with surgical dressing, there is moderate degree of postoperative swelling, distal pulses are intact. No calf tenderness. Today's blood work was reviewed, WBC is 12.8, hemoglobin is 10.1. Pain is reasonably controlled, and she is on an epidural and 8 ML per hour. On 01/02/2018 patient seen again in follow-up on the surgical floor. Has been up ambulating, and patient has severe pain post-ambulation in the postsurgical right knee. Currently she is in bed, oral pain pill, and she is in severe distress from pain. She still has the abductor canal catheter, anesthesia is managing it. She has dilated IV for breakthrough pain, patient was encouraged to ask for her pain medications on the regular basis, without waiting for severe outbreak of pain after ambulation. From pulmonary standpoint she remains stable, complaints, patient is compliant with her incentive spirometry. Room air pulse ox is 96%, she is afebrile. Lung sounds are clear. On 01/03/2018 patient seen in follow-up on surgical floor. She states she is having a lot less discomfort in her right knee today, she has been ambulating, and is able to tolerate ambulation better. Currently is in CPM. Abductor canal catheter was discontinued, and patient is now on oral pain medications, and IV Dilaudid for breakthrough pain. Troponin standpoint she remains stable, lung sounds are clear, she is doing her incentive spirometry, able to achieve 1500 on the today. Objective - Vital Signs Vital signs: Vital Signs Temp 98.9 F 01/03/18 07:50 Pulse 63 01/03/18 07:50 Resp 20 01/03/18 07:50 BP 157/64 01/03/18 07:50 Pulse Ox 93 L 01/03/18 00:32 Intake & Output 01/02/18 01/03/18 01/03/18 18:59 06:59 18:59 Intake Total 702 Balance 702 Intake: Oral 702 Other: Voiding Method Bedside Commode # Voids 2 1 - Exam GENERAL EXAM: Alert, very pleasant 77-year-old white female comfortable in no apparent distress. HEAD: Normocephalic/atraumatic. EYES: Normal reaction of pupils, equal size. Conjunctiva pink, sclera white. NOSE: Clear with pink turbinates. THROAT: No erythema or exudates. NECK: No masses, no JVD, no thyroid enlargement, no adenopathy. CHEST: No chest wall deformity. Symmetrical expansion. LUNGS: Equal air entry with no crackles, wheeze, rhonchi or dullness. CVS: Regular rate and rhythm, normal S1 and S2, no gallops, no murmurs, no rubs ABDOMEN: Soft, nontender. No hepatosplenomegaly, normal bowel sounds, no guarding or rigidity. EXTREMITIES: No clubbing, no cyanosis, 2+ pulses and upper and lower extremities. MUSCULOSKELETAL: Muscle strength and tone normal. Right knee incision is covered with surgical dressing, no shadowing, mild degree of swelling surrounding right knee, intact, no calf tenderness. SPINE: No scoliosis or deformity SKIN: No rashes CENTRAL NERVOUS SYSTEM: Alert and oriented -3. No focal deficits, tone is normal in all 4 extremities. PSYCHIATRIC: Alert and oriented -3. Appropriate affect. Intact judgment and insight. - Labs CBC & Chem 7: 01/03/18 06:06 Labs: Abnormal Lab Results - Last 24 Hours (Table) 01/02/18 01/02/18 01/03/18 Range/Units 17:16 19:44 06:06 RBC 3.37 L (3.80-5.40) m/uL Hgb 10.2 L (11.4-16.0) gm/dL Hct 32.1 L (34.0-46.0) % POC Glucose (mg/dL) 244 H 229 H (75-99) mg/dL 01/03/18 Range/Units 07:07 RBC (3.80-5.40) m/uL Hgb (11.4-16.0) gm/dL Hct (34.0-46.0) % POC Glucose (mg/dL) 152 H (75-99) mg/dL Assessment and Plan Plan: Assessment: #1. Severe right knee osteoarthrosis, status post right total knee arthroplasty , post op day 3 #2. History of artery artery disease status post bypass grafting #3. Diabetes mellitus #4. Previous history of DVT #5. Previous history of left total knee arthroplasty #6. Hypertension hyperlipidemia Plan: Patient remains stable, better controlled, continue encouraging deep breathing and coughing, and incentive spirometry use. Stable, no acute events overnight. Patient is stable for discharge to subacute rehab today. I performed a history & physical examination of the patient and discussed their management with my nurse practitioner, Yelena Mcguire. I reviewed the nurse practitioner's note and agree with the documented findings and plan of care. Lung sounds are clear. The findings and the impression was discussed with the patient. I attest to the documentation by the nurse practitioner. Time with Patient: Less than 30
[2018-01-03 12:46] LABS: Glucose,Whole Blood 158 mg/dL (75-99)
== END 2018-01-03 14:17 | DRG 470 ==
LOC: 2ORMAIN 08:36 → 3SUR 15:38
PROVIDERS: ADMIT Orthopaedic Surgery; ATTEND Orthopaedic Surgery
PROC: 0SRC0J9 Replacement of Right Knee Joint with Synthetic Substitute, Cemented, Open Approach (ICD-10-PCS; principal; 2017-12-31 12:00)
DX: M17.11 Unilateral primary osteoarthritis, right knee (principal); E78.5 Hyperlipidemia, unspecified; F40.240 Claustrophobia; I10 Essential (primary) hypertension; I25.10 Atherosclerotic heart disease of native coronary artery without angina pectoris; E11.51 Type 2 diabetes mellitus with diabetic peripheral angiopathy without gangrene; I35.1 Nonrheumatic aortic (valve) insufficiency; E66.9 Obesity, unspecified; Z68.35 Body mass index [BMI] 35.0-35.9, adult; Z79.899 Other long term (current) drug therapy; Z79.82 Long term (current) use of aspirin; Z79.4 Long term (current) use of insulin; Z85.828 Personal history of other malignant neoplasm of skin; Z86.718 Personal history of other venous thrombosis and embolism; Z87.891 Personal history of nicotine dependence; Z90.710 Acquired absence of both cervix and uterus; Z95.1 Presence of aortocoronary bypass graft; Z96.652 Presence of left artificial knee joint; Z98.42 Cataract extraction status, left eye; Z98.41 Cataract extraction status, right eye; Z96.1 Presence of intraocular lens; Z82.49 Family history of ischemic heart disease and other diseases of the circulatory system
CPT/HCPCS: 85025; 88300

== ENCOUNTER → 2018-04-02 | Outpatient (CLI) | payer MEDICARE ==
--- NOTE | 2018-04-04 14:18 | MM ---
Reason for exam: screening (asymptomatic). Last mammogram was performed 1 year and 3 months ago. History: Patient is postmenopausal and has history of other cancer at age 71. Cyst aspiration of the left breast. 2 benign excisional biopsies of the left breast. Benign excisional biopsy of the right breast. Took estrogen for 5 years beginning at age 45. Physical Findings: A clinical breast exam by your physician is recommended on an annual basis and results should be correlated with mammographic findings. MG 3D Screening Mammo W/Cad Bilateral CC and MLO view(s) were taken. Prior study comparison: January 02, 2017, bilateral MG 3d screening mammo w/cad. December 12, 2015, bilateral MG 3d screening mammo w/cad. The breast tissue is heterogeneously dense. This may lower the sensitivity of mammography. Benign appearing bilateral calcifications. No suspicious abnormality. No significant changes when compared with prior studies. ASSESSMENT: Benign, BI-RAD 2 RECOMMENDATION: Routine screening mammogram of both breasts in 1 year.
== END | disposition home or self-care (01) ==
LOC: RADMAMWWP 04-01 16:26
PROVIDERS: ATTEND Internal Medicine
DX: Z12.31 Encounter for screening mammogram for malignant neoplasm of breast (principal)
CPT/HCPCS: 77063; 77067

== ENCOUNTER → 2019-01-01 | Outpatient (CLI) | payer MEDICARE ==
[2019-01-01 10:20] LABS: Basophils % (A) 1 %; Eosinophils # (A) 0.2 k/uL (0-0.7); Eosinophils % (A) 3 %; HCT 36.5 % (34.0-46.0); HGB 11.7 gm/dL (11.4-16.0); Lymphocytes % (A) 31 %; MCH 30.5 pg (25.0-35.0); MCHC 32.2 g/dL (31.0-37.0); MCV 94.8 fL (80.0-100.0); Mean Platelet Volume 6.9; Monocytes # (A) 0.5 k/uL (0-1.0); Monocytes % (A) 7 %; Neutrophils # (A) 3.6 k/uL (1.3-7.7); Neutrophils % (A) 56 %; Platelet Count 437 k/uL (150-450); RBC 3.85 m/uL (3.80-5.40); RDW 13.2 % (11.5-15.5); WBC 6.5 k/uL (3.8-10.6)
[2019-01-01 17:48] LABS: Albumin 4.4 g/dL (3.80-4.90); Anion Gap 5.9 mmol/L (4.00-12.00); BUN/Creat Ratio 22.22 Ratio (12.00-20.00); Calcium 9.9 mg/dL (8.7-10.3); Carbon Dioxide 31.1 mmol/L (21.6-31.8); Chol/HDL Ratio 3.12; Globulin 2.2 g/dL (1.6-3.3); LDL Cholesterol,Calculated 61.2 mg/dL (0.0-131.0); Potassium 5.2 mmol/L (3.5-5.5); Total Bilirubin 0.4 mg/dL (0.3-1.2); Total Protein 6.6 g/dL (6.2-8.2); VLDL Calculation 25.8 mg/dL (5.00-40.00)
[2019-01-01 21:39] LABS: Hemoglobin A1C 8.3 % (4.0-6.0)
== END | disposition home or self-care (01) ==
LOC: LABWHC1 08:48
PROVIDERS: ATTEND Internal Medicine
DX: Z00.00 Encounter for general adult medical examination without abnormal findings (principal); E11.9 Type 2 diabetes mellitus without complications
CPT/HCPCS: 36415; 80053; 80061; 82043; 82570; 83036; 84439; 84443; 85025

== ENCOUNTER → 2019-05-27 | Outpatient (CLI) | payer MEDICARE ==
--- NOTE | 2019-05-28 12:05 | MM ---
Reason for exam: screening (asymptomatic). Last mammogram was performed 1 year and 2 months ago. History: Patient is postmenopausal and has history of other cancer at age 71. Cyst aspiration of the left breast. 2 benign excisional biopsies of the left breast. Benign excisional biopsy of the right breast. Took estrogen for 5 years beginning at age 45. Physical Findings: A clinical breast exam by your physician is recommended on an annual basis and results should be correlated with mammographic findings. MG 3D Screening Mammo W/Cad Bilateral CC and MLO view(s) were taken. Prior study comparison: April 02, 2018, bilateral MG 3d screening mammo w/cad. January 02, 2017, bilateral MG 3d screening mammo w/cad. The breast tissue is heterogeneously dense. This may lower the sensitivity of mammography. Benign appearing bilateral calcifications. There is no discrete abnormality. No significant changes when compared with prior studies. ASSESSMENT: Benign, BI-RAD 2 RECOMMENDATION: Routine screening mammogram of both breasts in 1 year.
== END | disposition home or self-care (01) ==
LOC: RADMAMWWP 08:52
PROVIDERS: ATTEND Internal Medicine
DX: Z12.31 Encounter for screening mammogram for malignant neoplasm of breast (principal)
CPT/HCPCS: 77063; 77067

== ENCOUNTER → 2019-10-27 | Outpatient (CLI) | payer MEDICARE ==
[2019-10-27 14:12] LABS: Basophils # (A) 0.1 k/uL (0-0.2); Basophils % (A) 1 %; Eosinophils # (A) 0.2 k/uL (0-0.7); Eosinophils % (A) 2 %; HCT 39.4 % (34.0-46.0); HGB 11.9 gm/dL (11.4-16.0); Hypochromasia Slight; Lymphocytes # (A) 2.3 k/uL (1.0-4.8); Lymphocytes % (A) 25 %; MCH 29.1 pg (25.0-35.0); MCHC 30.1 g/dL (31.0-37.0); MCV 96.6 fL (80.0-100.0); Mean Platelet Volume 7.6; Monocytes # (A) 0.7 k/uL (0-1.0); Monocytes % (A) 8 %; Neutrophils # (A) 5.7 k/uL (1.3-7.7); Neutrophils % (A) 63 %; Platelet Count 475 k/uL (150-450); RBC 4.08 m/uL (3.80-5.40); RDW 12.9 % (11.5-15.5); WBC 9.1 k/uL (3.8-10.6)
[2019-10-27 14:14] LABS: Amorphous Sediment,Urine Rare /hpf; Appearance,Urine Clear (Clear); Bacteria,Urine Rare /hpf; Bilirubin,Urine Negative (Negative); Blood,Urine Negative (Negative); Color,Urine Yellow; Glucose,Urine (UA) Negative (Negative); Hyaline Casts,Urine 4 /lpf (0-2); Ketones,Urine Negative (Negative); Leukocyte Esterase,Urine Small (Negative); Mucus,Urine Occasional /hpf; Nitrite,Urine Negative (Negative); Protein,Urine Trace (Negative); RBC,Urine 1 /hpf (0-5); Specific Gravity,Urine 1.023 (1.001-1.035); Squamous Epithelial Cell,Urine 1 /hpf (0-4); Urobilinogen,Urine <2.0 mg/dL (<2.0); WBC,Urine 3 /hpf (0-5)
[2019-10-27 18:39] LABS: African American GFR (CKD) 70.5 (60.0-200.0); Albumin 4.3 g/dL (3.80-4.90); Albumin/Globulin Ratio 1.59 (1.60-3.17); Anion Gap 12.2 mmol/L (4.00-12.00); BUN/Creat Ratio 16.67 Ratio (12.00-20.00); Calcium 9.9 mg/dL (8.7-10.3); Carbon Dioxide 27.8 mmol/L (21.6-31.8); Globulin 2.7 g/dL (1.6-3.3); Non-African American GFR(CKD) 60.8 (60.0-200.0); Potassium 4.3 mmol/L (3.5-5.5); Total Bilirubin 0.3 mg/dL (0.2-1.2)
== END | disposition home or self-care (01) ==
LOC: LABWHC1 12:22
PROVIDERS: ATTEND Internal Medicine
DX: R10.32 Left lower quadrant pain (principal)
CPT/HCPCS: 36415; 80053; 81001; 85025; 87086

== ENCOUNTER → 2019-11-12 | Outpatient (CLI) | payer MEDICARE ==
[2019-11-12 17:00] LABS: African American GFR (CKD) 81.3 (60.0-200.0); Albumin 4.1 g/dL (3.80-4.90); Albumin/Globulin Ratio 1.71 (1.60-3.17); Anion Gap 8.2 mmol/L (4.00-12.00); Calcium 9.5 mg/dL (8.7-10.3); Carbon Dioxide 29.8 mmol/L (21.6-31.8); Chol/HDL Ratio 3.16; Globulin 2.4 g/dL (1.6-3.3); LDL Cholesterol,Calculated 57.2 mg/dL (0.0-131.0); Non-African American GFR(CKD) 70.1 (60.0-200.0); Potassium 4.1 mmol/L (3.5-5.5); Total Bilirubin 0.4 mg/dL (0.3-1.2); Total Protein 6.5 g/dL (6.2-8.2); VLDL Calculation 24.8 mg/dL (5.00-40.00)
[2019-11-12 18:51] LABS: Urine Creatinine 355.5 mg/dL
== END | disposition home or self-care (01) ==
LOC: LABWHC1 08:07
PROVIDERS: ATTEND Internal Medicine Endocrinology, Diabetes & Metabolism
DX: E11.65 Type 2 diabetes mellitus with hyperglycemia (principal)
CPT/HCPCS: 36415; 80053; 80061; 82043; 82570; 83036; 84443

== ENCOUNTER → 2020-02-15 | Outpatient (CLI) | payer MEDICARE ==
[2020-02-15 14:34] LABS: African American GFR (CKD) 81.3 (60.0-200.0); Albumin 4.2 g/dL (3.80-4.90); Albumin/Globulin Ratio 1.68 (1.60-3.17); Anion Gap 6.7 mmol/L (4.00-12.00); BUN/Creat Ratio 18.75 Ratio (12.00-20.00); Calcium 9.6 mg/dL (8.7-10.3); Carbon Dioxide 31.3 mmol/L (21.6-31.8); Chol/HDL Ratio 3.07; Globulin 2.5 g/dL (1.6-3.3); LDL Cholesterol,Calculated 59.6 mg/dL (0.0-131.0); Non-African American GFR(CKD) 70.1 (60.0-200.0); Potassium 4.6 mmol/L (3.5-5.5); Total Bilirubin 0.4 mg/dL (0.3-1.2); Total Protein 6.7 g/dL (6.2-8.2); VLDL Calculation 27.4 mg/dL (5.00-40.00)
[2020-02-15 15:11] LABS: Hemoglobin A1C 8.2 % (4.0-6.0)
[2020-02-15 17:12] LABS: Urine Creatinine 159.4 mg/dL
== END | disposition home or self-care (01) ==
LOC: LABWHC1 08:18
PROVIDERS: ATTEND Internal Medicine Endocrinology, Diabetes & Metabolism
DX: E11.65 Type 2 diabetes mellitus with hyperglycemia (principal)
CPT/HCPCS: 36415; 80053; 80061; 82043; 82570; 83036; 84443

== ENCOUNTER → 2020-05-06 | Outpatient (CLI) | payer MEDICARE ==
--- NOTE | 2020-05-06 09:21 | US ---
EXAMINATION TYPE: US mass soft tissue chest/back DATE OF EXAM: 05/06/2020 COMPARISON: NONE CLINICAL HISTORY: D21.3 Benign neoplasm of connective and other soft tiusse of. Chest lump Anechoic area seen at area of lump measuring 1.8 x .8 x 1.4 cm. IMPRESSION: Palpable lump appears to correspond to a 1.8 cm cyst.
--- NOTE | 2020-05-06 09:41 | FL ---
EXAMINATION TYPE: FL barium swallow DATE OF EXAM: 05/06/2020 CLINICAL HISTORY: Dysphasia TECHNIQUE: A single contrast esophagram is performed utilizing air and barium. A total of 52 second s of fluoroscopic time was utilized during procedure. COMPARISON: None FINDINGS: The esophagus shows normal motility and emptying into the stomach. No evidence of hiatal h ernia or stricture noted. No significant gastroesophageal reflux was seen during real time performanc e of this study. IMPRESSION: No significant abnormality is seen to account for patient's symptoms.
== END | disposition home or self-care (01) ==
LOC: RADUSWWP 08:40
PROVIDERS: ATTEND Surgery Plastic and Reconstructive Surgery
DX: R22.2 Localized swelling, mass and lump, trunk (principal); R13.10 Dysphagia, unspecified
CPT/HCPCS: 74220

== ENCOUNTER 2020-06-09 06:57 | Day surgery (SDC) | payer MEDICARE ==
[2020-06-06 10:06] VITALS: BMI 37.8
[2020-06-09 07:23] VITALS: TEMP 98.4
[2020-06-09 07:29] LABS: Glucose,Whole Blood 220 mg/dL (75-99)
[2020-06-09] MEDS: LACTATED RINGERS 1,000 ML IV SCH ×2 (07:29→07:34)
[2020-06-09] MEDS ORDERED: INSULIN ASPART (NovoLOG) 100 UNIT/ML VIAL SQ ONE (07:33)
[2020-06-09] MEDS ORDERED: LIDOCAINE 1% INJ 10MG/ML (20 ML MDV) ONE (07:34)
[2020-06-09] MEDS ORDERED: PROPOFOL 10 MG/ML 20 ML VIAL IV ONE (07:34)
--- NOTE | 2020-06-09 07:43 | P.GSHP ---
History of Present Illness H&P Date: 06/09/20 CHIEF COMPLAINT: GERD and colon screen HISTORY OF PRESENT ILLNESS: The patient is a 79-year-old female who presents with gastroesophageal reflux disease and need for colon screen. Upper and lower endoscopy were offered for further evaluation and management. PAST MEDICAL HISTORY: Please see list. PAST SURGICAL HISTORY: Please see list. MEDICATIONS: Please see list. ALLERGIES: Please see list. SOCIAL HISTORY: No illicit drug use FAMILY HISTORY: No reports of Crohn disease or ulcerative colitis. REVIEW OF ORGAN SYSTEMS: CONSTITUTIONAL: No reports of fevers or chills. GI: Denies any blood in stools or constipation. PHYSICAL EXAM: VITAL SIGNS: Stable GENERAL: Well-developed pleasant in no acute distress. HEENT: No scleral icterus. Extraocular movements grossly intact. Moist buccal mucosa. NECK: Supple without lymphadenopathy. CHEST: Unlabored respirations. Equal bilateral excursions. CARDIOVASCULAR: Regular rate and rhythm. Distal 2+ pulses. ABDOMEN: Soft, nondistended. MUSCULOSKELETAL: No clubbing, cyanosis, or edema. ASSESSMENT: 1. Gastroesophageal reflux disease 2. Colon screen. PLAN: 1. Recommend proceeding with an upper and lower endoscopy Past Medical History Past Medical History: Coronary Artery Disease (CAD), Cancer, Diabetes Mellitus, Deep Vein Thrombosis (DVT), Hyperlipidemia, Hypertension, Osteoarthritis (OA) Additional Past Medical History / Comment(s): dvt in leg years ago, past hx skin cancer History of Any Multi-Drug Resistant Organisms: None Reported Date of last positivie culture/infection: . MDRO Source:: . Past Surgical History: Appendectomy, Breast Surgery, Coronary Bypass/CABG, Heart Catheterization, Hysterectomy, Joint Replacement Additional Past Surgical History / Comment(s): triple bypass 2008, sang knee replaced, breast biopsies x3, cataracts removed Past Anesthesia/Blood Transfusion Reactions: No Reported Reaction Additional Past Anesthesia/Blood Transfusion Reaction / Comment(s): claustrophobia Smoking Status: Former smoker - Past Family History Mother Family Medical History: No Reported History Medications and Allergies Home Medications Medication Instructions Recorded Confirmed Type Aspirin 243 mg PO HS 08/20/13 06/09/20 History Insulin Glargine,Hum.rec.anlog 24 units SQ HS 08/20/13 06/09/20 History [Lantus Solostar] Metoprolol Tartrate 50 mg PO QAM 08/20/13 06/09/20 History Simvastatin [Zocor] 40 mg PO HS 08/03/15 06/09/20 History Metoprolol Tartrate [Lopressor] 25 mg PO HS 10/01/17 06/09/20 History metFORMIN HCL [Glucophage] 1,000 mg PO BID 10/01/17 06/09/20 History Losartan Potassium [Cozaar] 100 mg PO DAILY 06/06/20 06/09/20 History amLODIPine BESYLATE [Norvasc] 2.5 mg PO DAILY 06/06/20 06/09/20 History hydroCHLOROthiazide 25 mg PO DAILY 06/06/20 06/09/20 History Allergies Allergy/AdvReac Type Severity Reaction Status Date / Time No Known Allergies Allergy Verified 06/09/20 07:13 Surgical - Exam Vital Signs Temp Pulse Resp BP Pulse Ox 98.4 F 89 20 156/80 96 06/09/20 07:22 06/09/20 07:22 06/09/20 07:22 06/09/20 07:22 06/09/20 07:22 Results - Labs Abnormal Lab Results - Last 24 Hours (Table) 06/09/20 Range/Units 07:26 POC Glucose (mg/dL) 220 H (75-99) mg/dL
--- NOTE | 2020-06-09 07:53 | P.PCN ---
Date of Procedure: 06/09/20 Description of Procedure: PREOPERATIVE DIAGNOSIS: Gastroesophageal reflux disease. Morbid obesity. Atypical chest Epigastric abdominal pain POSTOPERATIVE DIAGNOSIS: Acute gastric ulcer without bleeding Erosive esophagitis Gastroesophageal reflux disease. Diaphragmatic hiatal hernia OPERATION: Esophagogastroduodenoscopy with cold forceps biopsies along antrum and distal esophagus SURGEON: Eugenia Cast MD ANESTHESIA: MAC. INDICATIONS: The patient is a 79-year-old female who presents with a history of reflux disease. Benefits and risks of the procedure were described. Informed consent was obtained. DESCRIPTION: The patient was brought into the endoscopy suite and laid in the left lateral de cubitus position. An Olympus gastroscope was passed along the posterior oropharynx down to the distal esophagus where the squamocolumnar junction was encountered at 35 cm from the incisors. The stomach was entered and no bile reflux was found. Additional findings are listed below. Biopsies with cold forceps were obtained of the antrum. The first through third portion of the duodenum was examined and unremarkable. Retroflexion of the scope confirmed Hill grade 4 lower esophageal valve. The squamocolumnar junction demonstrated LA grade B erosive esophagitis. Biopsies obtained: Forceps. The stomach was desufflated. The patient tolerated the procedure well. FINDINGS: Squamocolumnar junction 35 cm from the incisors. Diaphragmatic hiatus at 38 cm. Hiatal hernia, 3 cm, fixed Hill grade 4 lower esophageal valve. LA grade B erosive esophagitis, biopsies obtained No active duodenitis. Acute gastric ulcer along antrum with chronic gastritis without bleeding, biopsies obtained RECOMMENDATIONS: Upper endoscopy as needed. Carafate and omeprazole for treatment
[2020-06-09 08:12] VITALS: RESP 16
--- NOTE | 2020-06-09 08:20 | P.PCN ---
Date of Procedure: 06/09/20 Description of Procedure: PREOPERATIVE DIAGNOSIS: Colonoscopy screening. POSTOPERATIVE DIAGNOSIS: Colonoscopy screening. Severe sigmoid diverticulosis with stricture OPERATION: Colonoscopy to the cecum, ileocecal valve SURGEON: Eugenia Cast MD. ANESTHESIA: MAC. INDICATIONS: The patient is a 79-year-old female who presents for colonoscopy screening. Last colonoscopy over 10 years ago. Benefits and risks were described and informed consent was obtained. DESCRIPTION OF PROCEDURE: The patient had undergone Suprep tablets. The patient had been brought into the operating room and laid in the left lateral decubitus position. After adequate intravenous sedation, the rectum was examined with 2% lidocaine jelly. External hemorrhoids were encountered. The rectal tone was within normal limits. No lesions were palpated in the rectal vault. An Olympus colonoscope was advanced until the cecum, ileocecal valve and appendiceal orifice were clearly viewed. The prep was excellent. Severe sigmoid diverticulosis was encountered with focal stricture at 20 cm from anal verge. Two hyperplastic polyps less than 2 mm were identified and undisturbed. No evidence of focal colitis was found. Retroflexion of the scope demonstrated grade 1 internal hemorrhoids without active bleeding or inflammation. The colon was desufflated. The patient had tolerated the procedure well. Withdrawal time was over 6 minutes. FINDINGS: Aronchick preparation quality scale 1 (1-5) Internal hemorrhoids, grade 1 External prolapsed hemorrhoids, grade 1 No arteriovenous malformations. Two hyperplastic polyps less than 2 mm were identified and undisturbed. No focal colitis. RECOMMENDATIONS: Lower endoscopy as needed Plan - Discharge Summary Discharge Rx Participant: No New Discharge Prescriptions: Continue Metoprolol Tartrate 50 mg PO QAM Insulin Glargine,Hum.rec.anlog [Lantus Solostar] 24 units SQ HS Aspirin 243 mg PO HS Simvastatin [Zocor] 40 mg PO HS Metoprolol Tartrate [Lopressor] 25 mg PO HS metFORMIN HCL [Glucophage] 1,000 mg PO BID amLODIPine BESYLATE [Norvasc] 2.5 mg PO DAILY Losartan Potassium [Cozaar] 100 mg PO DAILY hydroCHLOROthiazide 25 mg PO DAILY Discharge Medication List Aspirin 243 mg PO HS 08/20/13 [History] Insulin Glargine,Hum.rec.anlog [Lantus Solostar] 24 units SQ HS 08/20/13 [History] Metoprolol Tartrate 50 mg PO QAM 05/08/14 [History] Simvastatin [Zocor] 40 mg PO HS 08/03/15 [History] Metoprolol Tartrate [Lopressor] 25 mg PO HS 10/01/17 [History] metFORMIN HCL [Glucophage] 1,000 mg PO BID 10/01/17 [History] Losartan Potassium [Cozaar] 100 mg PO DAILY 06/06/20 [History] amLODIPine BESYLATE [Norvasc] 2.5 mg PO DAILY 06/06/20 [History] hydroCHLOROthiazide 25 mg PO DAILY 06/06/20 [History] Follow up Appointment(s)/Referral(s): Eugenia Cast MD [STAFF PHYSICIAN] - 06/28/20 Patient Instructions/Handouts: *[facility] - (Anesthesia) Endoscopy Discharge Instructions, *[facility] - (Anesthesia) Discharge Instructions Outpatient Surgery, Diverticulosis (DC), Diverticulosis Diet (GEN), Colonoscopy (DC) Activity/Diet/Wound Care/Special Instructions: Lower endoscopy as needed Discharge Disposition: HOME SELF-CARE
[2020-06-09 09:03] VITALS: BP 141/65; PULSE 64
== END 2020-06-09 09:17 | disposition home or self-care (01) ==
LOC: ORWHC2ENDO 06:57
PROVIDERS: ATTEND Surgery Plastic and Reconstructive Surgery
DX: Z12.11 Encounter for screening for malignant neoplasm of colon (principal); K57.30 Diverticulosis of large intestine without perforation or abscess without bleeding; K63.5 Polyp of colon; K29.50 Unspecified chronic gastritis without bleeding; K64.0 First degree hemorrhoids; K21.00 Gastro-esophageal reflux disease with esophagitis, without bleeding; K25.3 Acute gastric ulcer without hemorrhage or perforation; K44.9 Diaphragmatic hernia without obstruction or gangrene; I25.10 Atherosclerotic heart disease of native coronary artery without angina pectoris; E11.9 Type 2 diabetes mellitus without complications; E78.5 Hyperlipidemia, unspecified; F40.240 Claustrophobia; I10 Essential (primary) hypertension; M19.90 Unspecified osteoarthritis, unspecified site; E66.01 Morbid (severe) obesity due to excess calories; Z68.36 Body mass index [BMI] 36.0-36.9, adult; Z86.718 Personal history of other venous thrombosis and embolism; Z85.828 Personal history of other malignant neoplasm of skin; Z95.1 Presence of aortocoronary bypass graft; Z90.710 Acquired absence of both cervix and uterus; Z96.653 Presence of artificial knee joint, bilateral; Z98.890 Other specified postprocedural states; Z90.89 Acquired absence of other organs; Z98.49 Cataract extraction status, unspecified eye; Z87.891 Personal history of nicotine dependence; Z79.82 Long term (current) use of aspirin; Z79.4 Long term (current) use of insulin; Z79.899 Other long term (current) drug therapy
CPT/HCPCS: 43239; 88305; 88342; G0121; J2001; J2704; 45378

== ENCOUNTER → 2020-09-01 | Outpatient (CLI) | payer MEDICARE ==
--- NOTE | 2020-09-01 16:00 | XR ---
EXAMINATION TYPE: XR Hip LT and AP Pelvis DATE OF EXAM: 09/01/2020 CLINICAL HISTORY: pain TECHNIQUE: AP and frogleg views of the left hip are obtained. Single view the pelvis is also submitt ed. COMPARISON: None. FINDINGS: There is no acute fracture/dislocation evident. The joint space appears within normal li mits. The overlying soft tissue appears unremarkable. IMPRESSION: 1. There is no acute fracture or dislocation.ICD 10 NO FRACTURE, INITIAL EVALUATION
== END | disposition home or self-care (01) ==
LOC: RADXRMAIN 15:25
PROVIDERS: ATTEND Internal Medicine
DX: M25.552 Pain in left hip (principal)
CPT/HCPCS: 73502

== ENCOUNTER → 2020-09-27 | Outpatient (CLI) | payer MEDICARE ==
--- NOTE | 2020-09-29 08:28 | MM ---
Reason for exam: screening (asymptomatic). Last mammogram was performed 1 year and 4 months ago. History: Patient is postmenopausal and has history of other cancer at age 71. Cyst aspiration of the left breast. 2 benign excisional biopsies of the left breast. Benign excisional biopsy of the right breast. Took estrogen for 5 years beginning at age 45. Physical Findings: A clinical breast exam by your physician is recommended on an annual basis and results should be correlated with mammographic findings. MG 3D Screening Mammo W/Cad Bilateral CC and MLO view(s) were taken. Prior study comparison: May 27, 2019, bilateral MG 3d screening mammo w/cad. April 02, 2018, bilateral MG 3d screening mammo w/cad. The breast tissue is extremely dense which could obscure a lesion on mammography. Finding: There are typically benign vascular, dystrophic, round calcifications in both breasts. There is no discrete abnormality. ASSESSMENT: Benign, BI-RAD 2 RECOMMENDATION: Routine screening mammogram of both breasts in 1 year.
== END | disposition home or self-care (01) ==
LOC: RADMAMWWP 11:24
PROVIDERS: ATTEND Internal Medicine
DX: Z12.31 Encounter for screening mammogram for malignant neoplasm of breast (principal); Z78.0 Asymptomatic menopausal state
CPT/HCPCS: 77063; 77067

== ENCOUNTER → 2020-10-10 | Outpatient (CLI) | payer MEDICARE ==
--- NOTE | 2020-10-10 16:46 | XR ---
EXAMINATION TYPE: XR chest 2V DATE OF EXAM: 10/10/2020 COMPARISON: None HISTORY: 80-year-old female pre-MRI clearance. V90.9 Z18.0 TECHNIQUE: Frontal and lateral views FINDINGS: Median sternotomy wires with post-CABG clips in the mediastinum. No retained epicardial pacer leads a re identified The cardiomediastinal silhouette, aorta, and pulmonary vasculature are within normal li mits. Lungs and pleural spaces are clear. IMPRESSION: Post CABG changes. No retained epicardial pacer leads identified. No acute cardiopulmonary process.
== END | disposition home or self-care (01) ==
LOC: RADXRMAIN 15:13
PROVIDERS: ATTEND Physical Medicine & Rehabilitation
DX: Z95.1 Presence of aortocoronary bypass graft (principal)
CPT/HCPCS: 71046

== ENCOUNTER → 2021-02-27 | Outpatient (CLI) | payer MEDICARE ==
[2021-02-27 15:16] LABS: Basophils # (A) 0.06 X 10*3/uL (0.00-0.10); Basophils % (A) 0.8 %; HCT 36.4 % (37.2-46.3); HGB 11.1 g/dL (12.0-15.0); Lymphocytes # (A) 2.18 X 10*3/uL (0.90-5.00); Lymphocytes % (A) 29.3 %; MCH 29.6 pg (27.0-32.0); MCHC 30.5 g/dL (32.0-37.0); MCV 97.1 fL (80.0-97.0); Mean Platelet Volume 10.2 fL (9.5-12.2); Monocytes # (A) 0.75 X 10*3/uL (0.20-1.00); Monocytes % (A) 10.1 %; Neutrophils # (A) 4.13 X 10*3/uL (1.80-7.70); Neutrophils % (A) 55.7 %; Platelet Count 498 X 10*3/uL (140-440); RBC 3.75 X 10*6/uL (4.10-5.20); RDW 13.2 % (11.5-14.5); WBC 7.43 X 10*3/uL (4.50-10.00)
[2021-02-27 19:54] LABS: ALT 10 U/L (8-44); AST 17 U/L (13-35); African American GFR (CKD) 73.8 (60.0-200.0); Albumin/Globulin Ratio 1.38 (1.60-3.17); Alkaline Phosphatase 82 U/L (41-126); BUN/Creat Ratio 16.84 Ratio (12.00-20.00); Blood Urea Nitrogen 14.5 mg/dL (9.0-27.0); Calcium 9.8 mg/dL (8.7-10.3); Carbon Dioxide 24.2 mmol/L (21.6-31.8); Chloride 103 mmol/L (96-109); Chol/HDL Ratio 3.32 Ratio; Globulin 2.9 g/dL (1.6-3.3); Glucose 115 mg/dL (70-110); LDL Cholesterol,Calculated 59.9 mg/dL (0.0-131.0); Microalbumin Creatinine Ratio <30 mg/g Creat (0-30); Non-African American GFR(CKD) 63.7 (60.0-200.0); Potassium 4.4 mmol/L (3.5-5.5); Sodium 141 mmol/L (135-145); Total Bilirubin <0.20 mg/dL (0.30-1.20); Total Protein 6.9 g/dL (6.2-8.2)
== END | disposition home or self-care (01) ==
LOC: LABWHC1 08:21
PROVIDERS: ATTEND Internal Medicine Endocrinology, Diabetes & Metabolism
DX: Z00.00 Encounter for general adult medical examination without abnormal findings (principal); E11.65 Type 2 diabetes mellitus with hyperglycemia; E78.5 Hyperlipidemia, unspecified; I10 Essential (primary) hypertension
CPT/HCPCS: 36415; 80053; 80061; 82043; 82306; 82570; 83036; 84439; 84443; 85025

== ENCOUNTER → 2021-08-29 | Outpatient (CLI) | payer MEDICARE ==
[2021-08-29 14:49] LABS: ALT 12 U/L (8-44); AST 13 U/L (13-35); African American GFR (CKD) 78.3 (60.0-200.0); Albumin 4.1 g/dL (3.8-4.9); Albumin/Globulin Ratio 1.51 (1.60-3.17); Alkaline Phosphatase 73 U/L (41-126); BUN/Creat Ratio 23.78 Ratio (12.00-20.00); Blood Urea Nitrogen 19.5 mg/dL (9.0-27.0); Carbon Dioxide 28.5 mmol/L (20.0-27.5); Chloride 102 mmol/L (96-109); Chol/HDL Ratio 3.19 Ratio; Globulin 2.7 g/dL (1.6-3.3); Glucose 119 mg/dL (70-110); LDL Cholesterol,Calculated 61.6 mg/dL (0.0-131.0); Non-African American GFR(CKD) 67.6 (60.0-200.0); Potassium 4.6 mmol/L (3.5-5.5); Sodium 142 mmol/L (135-145); Total Protein 6.8 g/dL (6.2-8.2)
== END | disposition home or self-care (01) ==
LOC: LABWHC1 07:38
PROVIDERS: ATTEND Internal Medicine Endocrinology, Diabetes & Metabolism
DX: E11.65 Type 2 diabetes mellitus with hyperglycemia (principal)
CPT/HCPCS: 36415; 80053; 80061; 82043; 82570; 83036; 84443

== ENCOUNTER → 2021-09-29 | Outpatient (CLI) | payer MEDICARE ==
--- NOTE | 2021-10-02 17:37 | MM ---
Reason for Exam: Screening (asymptomatic). Last screening mammogram was performed 12 month(s) ago. Patient History: Menarche at age 13. First Full-Term at age 20. Left ovary removed at age 45. Right ovary removed at age 45. Hysterectomy at age 45. Postmenopausal. Estrogen for 5 years from age 45 until age 50. Cyst Aspiration on the Left side. Benign Excisional Biopsy on the right side. Benign Excisional Biopsy on the left side. Benign Excisional Biopsy on the left side. Risk Values: Mouna 5 year model risk: 2.2%. NCI Lifetime model risk: 3.4%. Prior Study Comparison: 04/02/2018 Bilateral Screening Mammogram, [facility]. 05/27/2019 Bilateral Screening Mammogram, [facility]. 09/27/2020 Bilateral Screening Mammogram, [facility]. Tissue Density: The breast tissue is heterogeneously dense. This may lower the sensitivity of mammography. Findings: Analyzed By CAD. Benign vascular calcification is present bilaterally. Some coarse calcifications are within the left breast which are stable. No suspicious groups of microcalcifications, spiculated or lobular masses, architectural distortion or other secondary signs of malignancy are mammographically apparent. Overall Assessment: Benign, BI-RAD 2 Management: Screening Mammogram of both breasts in 1 year. A negative mammogram report should not preclude additional follow up of suspicious palpable abnormalities. Patient should continue monthly self breast exam. A clinical breast exam by your physician is recommended on an annual basis and results should be correlated with mammographic findings. Electronically signed and approved by: Christian Garcia D.O. Radiologis
== END | disposition home or self-care (01) ==
LOC: RADMAMWWP 09:30
PROVIDERS: ATTEND Internal Medicine
DX: Z12.31 Encounter for screening mammogram for malignant neoplasm of breast (principal); R92.1 Mammographic calcification found on diagnostic imaging of breast; Z78.0 Asymptomatic menopausal state
CPT/HCPCS: 77063; 77067

== ENCOUNTER → 2022-01-04 | Outpatient (CLI) | payer MEDICARE ==
[2022-01-04 14:49] LABS: ALT 7 U/L (8-44); AST 16 U/L (13-35); African American GFR (CKD) 71.3 (60.0-200.0); Albumin 4.1 g/dL (3.8-4.9); Alkaline Phosphatase 83 U/L (41-126); BUN/Creat Ratio 17.59 Ratio (12.00-20.00); Blood Urea Nitrogen 15.5 mg/dL (9.0-27.0); Calcium 9.7 mg/dL (8.7-10.3); Carbon Dioxide 26.4 mmol/L (20.0-27.5); Chloride 101 mmol/L (96-109); Chol/HDL Ratio 2.99 Ratio; Globulin 3.1 g/dL (1.6-3.3); Glucose 142 mg/dL (70-110); LDL Cholesterol,Calculated 54.5 mg/dL (0.0-131.0); Non-African American GFR(CKD) 61.5 (60.0-200.0); Potassium 4.1 mmol/L (3.5-5.5); Sodium 140 mmol/L (135-145); Total Protein 7.2 g/dL (6.2-8.2)
== END | disposition home or self-care (01) ==
LOC: LABWHC1 09:56
PROVIDERS: ATTEND Internal Medicine Endocrinology, Diabetes & Metabolism
DX: E11.65 Type 2 diabetes mellitus with hyperglycemia (principal)
CPT/HCPCS: 36415; 80053; 80061; 82043; 82570; 83036; 84443

== ENCOUNTER → 2022-08-04 | Outpatient (CLI) | payer MEDICARE ==
[2022-08-04 23:48] LABS: Basophils # (A) 0.04 X 10*3/uL (0.00-0.10); Basophils % (A) 0.5 %; Eosinophils # (A) 0.18 X 10*3/uL (0.04-0.35); Eosinophils % (A) 2.4 %; HCT 37.9 % (37.2-46.3); HGB 11.3 g/dL (12.0-15.0); Immature Grans, Automated 0.1 %; Lymphocytes # (A) 2.14 X 10*3/uL (0.90-5.00); Lymphocytes % (A) 28.7 %; MCH 29.5 pg (27.0-32.0); MCHC 29.8 g/dL (32.0-37.0); Mean Platelet Volume 10.4 fL (9.5-12.2); Monocytes # (A) 0.65 X 10*3/uL (0.20-1.00); Monocytes % (A) 8.7 %; NRBC Per 100 WBC 0 /100 WBCS (0.0-0.0); Neutrophils # (A) 4.43 X 10*3/uL (1.80-7.70); Neutrophils % (A) 59.6 %; Platelet Count 500 X 10*3/uL (140-440); RBC 3.83 X 10*6/uL (4.10-5.20); RDW 13.5 % (11.5-14.5); WBC 7.45 X 10*3/uL (4.50-10.00)
[2022-08-05 08:41] LABS: ALT 12 U/L (8-44); AST 16 U/L (13-35); African American GFR (CKD) 78.6 (60.0-200.0); Albumin/Globulin Ratio 1.48 (1.60-3.17); Alkaline Phosphatase 77 U/L (41-126); Blood Urea Nitrogen 15.2 mg/dL (9.0-27.0); Calcium 9.7 mg/dL (8.7-10.3); Carbon Dioxide 27.9 mmol/L (20.0-27.5); Chloride 103 mmol/L (96-109); Chol/HDL Ratio 2.89 Ratio; Globulin 2.7 g/dL (1.6-3.3); Glucose 145 mg/dL (70-110); LDL Cholesterol,Calculated 71.8 mg/dL (0.0-131.0); Non-African American GFR(CKD) 67.8 (60.0-200.0); Potassium 4.5 mmol/L (3.5-5.5); Sodium 143 mmol/L (135-145); Total Protein 6.7 g/dL (6.2-8.2)
[2022-08-05 12:01] LABS: Vitamin B12 <150.0 pg/mL (200.0-944.0)
== END | disposition home or self-care (01) ==
LOC: LABWHC1 10:34
PROVIDERS: ATTEND Internal Medicine
DX: E78.5 Hyperlipidemia, unspecified (principal); I10 Essential (primary) hypertension; R53.83 Other fatigue; R53.1 Weakness
CPT/HCPCS: 36415; 80053; 80061; 82306; 82607; 83036; 84439; 84443; 85025

== ENCOUNTER → 2022-09-13 | Outpatient (CLI) | payer MEDICARE ==
[2022-09-14 02:15] LABS: Basophils # (A) 0.04 X 10*3/uL (0.00-0.10); Basophils % (A) 0.4 %; Eosinophils # (A) 0.19 X 10*3/uL (0.04-0.35); HCT 36.6 % (37.2-46.3); HGB 11.2 g/dL (12.0-15.0); Immature Grans, Automated 0.1 %; Lymphocytes # (A) 2.62 X 10*3/uL (0.90-5.00); Lymphocytes % (A) 27.6 %; MCH 29.6 pg (27.0-32.0); MCHC 30.6 g/dL (32.0-37.0); MCV 96.6 fL (80.0-97.0); Mean Platelet Volume 10.6 fL (9.5-12.2); Monocytes # (A) 0.99 X 10*3/uL (0.20-1.00); Monocytes % (A) 10.4 %; NRBC Per 100 WBC 0 /100 WBCS (0.0-0.0); Neutrophils # (A) 5.63 X 10*3/uL (1.80-7.70); Neutrophils % (A) 59.5 %; Platelet Count 487 X 10*3/uL (140-440); RBC 3.79 X 10*6/uL (4.10-5.20); RDW 13.8 % (11.5-14.5); WBC 9.48 X 10*3/uL (4.50-10.00)
== END | disposition home or self-care (01) ==
LOC: LABWHC1 15:29
PROVIDERS: ATTEND Internal Medicine
DX: D64.9 Anemia, unspecified (principal)
CPT/HCPCS: 36415; 85025

== ENCOUNTER → 2022-10-01 | Outpatient (CLI) | payer MEDICARE ==
--- NOTE | 2022-10-01 08:01 | MM ---
Reason for Exam: Screening (asymptomatic). Last screening mammogram was performed 12 month(s) ago. Patient History: Menarche at age 13. First Full-Term at age 20. Left ovary removed at age 45. Right ovary removed at age 45. Hysterectomy at age 45. Postmenopausal. Estrogen for 5 years from age 45 until age 50. Cyst Aspiration on the Left side. Benign Excisional Biopsy on the right side. Benign Excisional Biopsy on the left side. Benign Excisional Biopsy on the left side. Risk Values: Mouna 5 year model risk: 2.2%. NCI Lifetime model risk: 3.1%. Prior Study Comparison: 05/27/2019 Bilateral Screening Mammogram, [facility]. 09/27/2020 Bilateral Screening Mammogram, [facility]. 09/29/2021 Bilateral MG 3D screening mammo w/cad, [facility]. Tissue Density: The breast tissue is heterogeneously dense. This may lower the sensitivity of mammography. Findings: Analyzed By CAD. Benign-appearing calcifications bilaterally. There is no suspicious group of microcalcifications or new suspicious mass in either breast. Overall Assessment: Benign, BI-RAD 2 Management: Screening Mammogram of both breasts in [address] [facility] will attempt to contact patient to return for supplemental views and ultrasound if indicated. Patient should continue monthly self-breast exams. A clinical breast exam by your physician is recommended on an annual basis. This exam should not preclude additional follow-up of suspicious palpable abnormalities. Note on Mouna scores and lifetime risk: 1. A Mouna score greater than 3% is considered moderate risk. If this is the case, consider specialist referral to assess eligibility for a risk reducing agent. 2. If overall lifetime risk for the development of breast cancer is 20% or higher, the patient may qualify for future screening with alternating mammogram and breast MRI. Electronically signed and approved by: Juan Page DO
== END | disposition home or self-care (01) ==
LOC: RADMAMWWP 07:34
PROVIDERS: ATTEND Internal Medicine
DX: Z12.31 Encounter for screening mammogram for malignant neoplasm of breast (principal); Z78.0 Asymptomatic menopausal state
CPT/HCPCS: 77063; 77067

== ENCOUNTER → 2022-10-12 | Outpatient (CLI) | payer MEDICARE | END | disposition home or self-care (01) | LOC: LABWHC1 09:03 | PROVIDERS: ATTEND Internal Medicine | DX: E53.9 Vitamin B deficiency, unspecified (principal) | CPT/HCPCS: 36415; 82607 ==

== ENCOUNTER → 2023-02-01 | Outpatient (CLI) | payer MEDICARE | END | disposition home or self-care (01) | LOC: LABWHC1 10:57 | PROVIDERS: ATTEND Internal Medicine | DX: D51.9 Vitamin B12 deficiency anemia, unspecified (principal) | CPT/HCPCS: 36415; 82607 ==

== ENCOUNTER → 2023-03-19 | Outpatient (CLI) | payer MEDICARE ==
[2023-03-19 16:54] LABS: ALT 10 U/L (8-44); AST 15 U/L (13-35); Chol/HDL Ratio 2.51 Ratio; LDL Cholesterol,Calculated 58.8 mg/dL (0.0-131.0); VLDL Calculation 18.86 mg/dL (5.00-40.00)
== END | disposition home or self-care (01) ==
LOC: LABWHC1 10:58
PROVIDERS: ATTEND Internal Medicine Interventional Cardiology
DX: E78.00 Pure hypercholesterolemia, unspecified (principal)
CPT/HCPCS: 36415; 80061; 84450; 84460

== ENCOUNTER → 2023-07-19 | Outpatient (CLI) | payer MEDICARE ==
[2023-07-19 16:00] LABS: ALT 9 U/L (8-44); AST 13 U/L (13-35); Albumin 4.1 g/dL (3.8-4.9); Albumin/Globulin Ratio 1.46 Ratio (1.60-3.17); Alkaline Phosphatase 82 U/L (41-126); Calcium 10.2 mg/dL (8.7-10.3); Carbon Dioxide 25.1 mmol/L (21.6-31.8); Chloride 101 mmol/L (96-109); Chol/HDL Ratio 3.04 Ratio; Globulin 2.8 g/dL (1.6-3.3); Glucose 181 mg/dL (70-110); LDL Cholesterol,Calculated 67.5 mg/dL (0.0-131.0); Potassium 4.4 mmol/L (3.5-5.5); Sodium 139 mmol/L (135-145); Total Bilirubin 0.3 mg/dL (0.3-1.2); Total Protein 6.9 g/dL (6.2-8.2)
== END | disposition home or self-care (01) ==
LOC: LABWHC1 08:45
PROVIDERS: ATTEND Internal Medicine Endocrinology, Diabetes & Metabolism
DX: E11.65 Type 2 diabetes mellitus with hyperglycemia (principal)
CPT/HCPCS: 36415; 80053; 80061; 82043; 82570; 83036; 84443

== ENCOUNTER → 2023-10-04 | Outpatient (CLI) | payer MEDICARE ==
--- NOTE | 2023-10-07 13:53 | MM ---
Reason for Exam: Screening (asymptomatic). Last screening mammogram was performed 12 month(s) ago. Patient History: Menarche at age 13. First Full-Term at age 20. Left ovary removed at age 45. Right ovary removed at age 45. Hysterectomy at age 45. Postmenopausal. Estrogen for 5 years from age 45 until age 50. Cyst Aspiration on the Left side. Benign Excisional Biopsy on the right side. Benign Excisional Biopsy on the left side. Benign Excisional Biopsy on the left side. Risk Values: Mouna 5 year model risk: 2.1%. NCI Lifetime model risk: 2.8%. Prior Study Comparison: 09/27/2020 Bilateral Screening Mammogram, [facility]. 09/29/2021 Bilateral MG 3D screening mammo w/cad, [facility]. 10/01/2022 Bilateral MG 3D screening mammo w/cad, [facility]. Tissue Density: The breasts are heterogeneously dense, which may obscure small masses. Findings: Analyzed By CAD. Right breast: There is no suspicious group of microcalcifications or new suspicious mass. Benign-appearing calcifications right breast. Left breast: There is no suspicious group of microcalcifications or new suspicious mass. Benign-appearing calcifications left breast. Overall Assessment: Negative, BI-RAD 1 Management: Screening Mammogram of both breasts in [address] [facility] will attempt to contact patient to return for supplemental views and ultrasound if indicated. Patient should continue monthly self-breast exams. A clinical breast exam by your physician is recommended on an annual basis. This exam should not preclude additional follow-up of suspicious palpable abnormalities. Note on Mouna scores and lifetime risk: 1. A Mouna score greater than 3% is considered moderate risk. If this is the case, consider specialist referral to assess eligibility for a risk reducing agent. 2. If overall lifetime risk for the development of breast cancer is 20% or higher, the patient may qualify for future screening with alternating mammogram and breast MRI. Electronically signed and approved by: Juan Page DO
== END | disposition home or self-care (01) ==
LOC: RADMAMWWP 08:22
PROVIDERS: ATTEND Internal Medicine
DX: Z12.31 Encounter for screening mammogram for malignant neoplasm of breast (principal); Z78.0 Asymptomatic menopausal state
CPT/HCPCS: 77063; 77067

== ENCOUNTER → 2024-10-30 | Outpatient (CLI) | payer MEDICARE ==
--- NOTE | 2024-11-02 11:23 | MM ---
Reason for Exam: Screening (asymptomatic). Last mammogram was performed 1 year(s) and 1 month(s) ago. Patient History: Menarche at age 13. First Full-Term at age 20. Left ovary removed at age 45. Right ovary removed at age 45. Hysterectomy at age 45. Postmenopausal. Estrogen for 5 years from age 45 until age 50. Cyst Aspiration on the Left side. Benign Excisional Biopsy on the right side. Benign Excisional Biopsy on the left side. Benign Excisional Biopsy on the left side. Risk Values: Mouna 5 year model risk: 1.9%. NCI Lifetime model risk: 2.1%. Prior Study Comparison: 09/29/2021 Bilateral MG 3D screening mammo w/cad, [facility]. 10/01/2022 Bilateral MG 3D screening mammo w/cad, [facility]. 10/04/2023 Bilateral MG 3D screening mammo w/cad, [facility]. Tissue Density: The breasts are heterogeneously dense, which may obscure small masses. Findings: Analyzed By CAD. There is no suspicious group of microcalcifications or new suspicious mass in either breast. Overall Assessment: Benign, BI-RAD 2 Management: Screening Mammogram of both breasts in 1 year. . Patient should continue monthly self-breast exams. A clinical breast exam by your physician is recommended on an annual basis. This exam should not preclude additional follow-up of suspicious palpable abnormalities. Note on Mouna scores and lifetime risk: 1. A Mouna score greater than 3% is considered moderate risk. If this is the case, consider specialist referral to assess eligibility for a risk reducing agent. 2. If overall lifetime risk for the development of breast cancer is 20% or higher, the patient may qualify for future screening with alternating mammogram and breast MRI. [facility], , 10/30/2024 9:53 AM. Electronically signed and approved by: Jin Duque M.D. Radiologis
== END | disposition home or self-care (01) ==
LOC: RADMAMWWP 09:10
PROVIDERS: ATTEND Family Medicine
DX: Z12.31 Encounter for screening mammogram for malignant neoplasm of breast (principal); R92.333 Mammographic heterogeneous density, bilateral breasts; Z78.0 Asymptomatic menopausal state
CPT/HCPCS: 77063; 77067